=== PATIENT | male | born 1995 | race Caucasian/White ===

== ENCOUNTER 2021-06-07 01:07 | Emergency (ER) | payer BC ==
[~2021-06-07] VITALS: Ht 167.7 cm; Wt 82.6 kg
[2021-06-07] MEDS ORDERED: TAMSULOSIN 0.4 MG (FLOMAX) CAP PO STA (01:55)
[2021-06-07] MEDS ORDERED: NS IV 1000 ML 1,000 ML IV SCH (02:00)
[2021-06-07] MEDS ORDERED: KETOROLAC 15 MG/ML VIAL IVP ONE (02:00)
[2021-06-07 02:11] LABS: BASOPHILS # (AUTO) 0.1 10^3/uL (0.0-0.1); BASOPHILS % (AUTO) 1 % (0-10); EOSINOPHILS # (AUTO) 0.2 10^3/uL (0.0-0.3); EOSINOPHILS % (AUTO) 2 % (0-10); HEMATOCRIT 44 % (40-54); HEMOGLOBIN 14.8 g/dL (13.3-17.7); LYMPHOCYTES # (AUTO) 1.9 10^3/uL (1.0-4.0); LYMPHOCYTES % (AUTO) 20 % (12-44); MEAN CORPUSCULAR HEMOGLOBIN 31 pg (25-34); MEAN CORPUSCULAR HGB CONC 34 g/dL (32-36); MEAN CORPUSCULAR VOLUME 93 fL (80-99); MEAN PLATELET VOLUME 10.8 fL (9.0-12.2); MONOCYTES # (AUTO) 1.1 10^3/uL (0.0-1.0); MONOCYTES % (AUTO) 11 % (0-12); NEUTROPHILS # (AUTO) 6.3 10^3/uL (1.8-7.8); NEUTROPHILS % (AUTO) 66 % (42-75); PLATELET COUNT 205 10^3/uL (130-400); WHITE BLOOD COUNT 9.5 10^3/uL (4.3-11.0)
[2021-06-07 02:12] LABS: BILIRUBIN,URINE NEGATIVE (NEGATIVE); CLARITY,URINE CLEAR; COLOR,URINE YELLOW; GLUCOSE, URINE (UA) NEGATIVE (NEGATIVE); KETONES,URINE NEGATIVE (NEGATIVE); LEUKOCYTE ESTERASE ,URINE NEGATIVE (NEGATIVE); NITRITE,URINE NEGATIVE (NEGATIVE); PH,URINE 7.5 (5-9); PROTEIN,URINE NEGATIVE (NEGATIVE)
[2021-06-07 02:15] LABS: ALBUMIN 4.8 GM/DL (3.2-4.5); CHLORIDE 101 MMOL/L (98-107); POTASSIUM 4.2 MMOL/L (3.6-5.0); SODIUM 139 MMOL/L (135-145)
[2021-06-07 02:16] LABS: CALCIUM 9.8 MG/DL (8.5-10.1)
[2021-06-07 02:17] LABS: TOTAL PROTEIN 7.1 GM/DL (6.4-8.2)
[2021-06-07 02:18] LABS: CARBON DIOXIDE 22 MMOL/L (21-32); GLUCOSE 97 MG/DL (70-105)
[2021-06-07 02:19] LABS: BILIRUBIN,TOTAL 1.7 MG/DL (0.1-1.0)
[2021-06-07 02:21] LABS: ALKALINE PHOSPHATASE 53 U/L (40-136); CREATININE SERUM 0.81 MG/DL (0.60-1.30); GFR ESTIMATED 126
[2021-06-07 02:22] LABS: BUN/CREATININE RATIO 22
[2021-06-07 02:24] LABS: ALANINE AMINOTRANSFERASE 20 U/L (0-55)
[2021-06-07 02:25] LABS: LIPASE 42 U/L (8-78)
[2021-06-07 02:28] LABS: AMORPHOUS SEDIMENT,UR FEW AMOR URATES /LPF; AMPHETAMINE SCREEN, URINE POSITIVE (NEGATIVE); BACTERIA,URINE NEGATIVE /HPF; BARBITURATE SCREEN URINE NEGATIVE (NEGATIVE); BENZODIAZEPINES SCREEN URINE NEGATIVE (NEGATIVE); CANNABINOID SCREEN, URINE POSITIVE (NEGATIVE); COCAINE SCREEN URINE NEGATIVE (NEGATIVE); METHADONE STAT NEGATIVE (NEGATIVE); METHAMPHETAMINE SCREEN URINE S NEGATIVE (NEGATIVE); OPIATE SCREEN URINE NEGATIVE (NEGATIVE); OXYCODONE STAT NEGATIVE (NEGATIVE); PROPOXYPHENE STAT NEGATIVE (NEGATIVE); SQUAMOUS EPITHELIAL CELL,UR 0-2 /HPF; TRICYCLIC ANTIDEPRESSANTS SCRE NEGATIVE (NEGATIVE)
--- NOTE | 2021-06-07 05:23 | ED General ---
General Chief Complaint: General Problems/Pain Stated Complaint: DISORIENTED,KIDNEY PAIN History of Present Illness Date Seen by Provider: Jun 07, 2021 Time Seen by Provider: 02:50 Initial Comments 26-year-old male with PMH of ADHD who is here with complaints of left-sided flank pain which began yesterday, and feels like it radiates to his testicles. Patient is also stating that he has testicles that keep twisting and he has had to untwist it himself. Denies fever, SOB, chest pain, diarrhea, nausea. Pt states he has had a hard time passing urine and feels like it is stuck. (RFANCISCO CANTU MD) Allergies and Home Medications Allergies Coded Allergies: No Known Drug Allergies (Unverified , 06/07/21) Patient Home Medication List Home Medication List Reviewed: Yes (FRANCISCO CANTU MD) Review of Systems Review of Systems Constitutional: no symptoms reported EENTM: no symptoms reported Respiratory: no symptoms reported Cardiovascular: no symptoms reported Gastrointestinal: no symptoms reported Genitourinary: decreased output, pain Musculoskeletal: no symptoms reported Skin: no symptoms reported Psychiatric/Neurological: No Symptoms Reported Hematologic/Lymphatic: No Symptoms Reported (FRANCISCO CANTU MD) Physical Exam Vital Signs Vital Signs - First Documented 06/07/21 01:08 Temp 37.0 Pulse 90 Resp 18 B/P (MAP) 142/102 (115) Pulse Ox 100 O2 Delivery Room Air (JAYLEN MORALES) Vital Signs Capillary Refill : (FRANCISCO CANTU MD) Height, Weight, BMI Height: '" Weight: lbs. oz. kg; BMI Method: General Appearance: No Apparent Distress, Anxious HEENT: PERRL/EOMI Neck: Full Range of Motion Respiratory: Chest Non Tender, Lungs Clear, Normal Breath Sounds Cardiovascular: Regular Rate, Rhythm Gastrointestinal: Normal Bowel Sounds, No Pulsatile Mass Genital/Rectal: Tenderness (over the testicles, no apparent torsion) Back: CVA Tenderness (L) Neurologic/Psychiatric: Alert, Oriented x3 Lymphatic: No Adenopathy (FRANCISCO CANTU MD) Progress/Results/Core Measures Suspected Sepsis SIRS Temperature: Pulse: Respiratory Rate: Laboratory Tests 06/07/21 01:23: White Blood Count 9.5 Blood Pressure / Mean: Laboratory Tests 06/07/21 01:23: Creatinine 0.81, Platelet Count 205, Total Bilirubin 1.7H (FRANCISCO CANTU MD) Results/Orders Lab Results Laboratory Tests Test 06/07/21 01:23 Range/Units White Blood Count 9.5 4.3-11.0 10^3/uL Red Blood Count 4.72 4.30-5.52 10^6/uL Hemoglobin 14.8 13.3-17.7 g/dL Hematocrit 44 40-54 % Mean Corpuscular Volume 93 80-99 fL Mean Corpuscular Hemoglobin 31 25-34 pg Mean Corpuscular Hemoglobin Concent 34 32-36 g/dL Red Cell Distribution Width 13.8 10.0-14.5 % Platelet Count 205 130-400 10^3/uL Mean Platelet Volume 10.8 9.0-12.2 fL Immature Granulocyte % (Auto) 0 % Neutrophils (%) (Auto) 66 42-75 % Lymphocytes (%) (Auto) 20 12-44 % Monocytes (%) (Auto) 11 0-12 % Eosinophils (%) (Auto) 2 0-10 % Basophils (%) (Auto) 1 0-10 % Neutrophils # (Auto) 6.3 1.8-7.8 10^3/uL Lymphocytes # (Auto) 1.9 1.0-4.0 10^3/uL Monocytes # (Auto) 1.1 H 0.0-1.0 10^3/uL Eosinophils # (Auto) 0.2 0.0-0.3 10^3/uL Basophils # (Auto) 0.1 0.0-0.1 10^3/uL Immature Granulocyte # (Auto) 0.0 0.0-0.1 10^3/uL Urine Color YELLOW Urine Clarity CLEAR Urine pH 7.5 5-9 Urine Specific [place] 1.015 L 1.016-1.022 Urine Protein NEGATIVE NEGATIVE Urine Glucose (UA) NEGATIVE NEGATIVE Urine Ketones NEGATIVE NEGATIVE Urine Nitrite NEGATIVE NEGATIVE Urine Bilirubin NEGATIVE NEGATIVE Urine Urobilinogen 0.2 < = 1.0 MG/DL Urine Leukocyte Esterase NEGATIVE NEGATIVE Urine RBC (Auto) NEGATIVE NEGATIVE Urine RBC NONE /HPF Urine WBC NONE /HPF Urine Squamous Epithelial Cells 0-2 /HPF Urine Crystals PRESENT H /LPF Urine Amorphous Sediment FEW LON URATES H /LPF Urine Bacteria NEGATIVE /HPF Urine Casts NONE /LPF Urine Mucus NEGATIVE /LPF Urine Culture Indicated NO Sodium Level 139 135-145 MMOL/L Potassium Level 4.2 3.6-5.0 MMOL/L Chloride Level 101 98-107 MMOL/L Carbon Dioxide Level 22 21-32 MMOL/L Anion Gap 16 H 5-14 MMOL/L Blood Urea Nitrogen 18 7-18 MG/DL Creatinine 0.81 0.60-1.30 MG/DL Estimat Glomerular Filtration Rate 126 BUN/Creatinine Ratio 22 Glucose Level 97 70-105 MG/DL Calcium Level 9.8 8.5-10.1 MG/DL Corrected Calcium 8.5-10.1 MG/DL Total Bilirubin 1.7 H 0.1-1.0 MG/DL Aspartate Amino Transf (AST/SGOT) 16 5-34 U/L Alanine Aminotransferase (ALT/SGPT) 20 0-55 U/L Alkaline Phosphatase 53 40-136 U/L Total Protein 7.1 6.4-8.2 GM/DL Albumin 4.8 H 3.2-4.5 GM/DL Lipase 42 8-78 U/L Urine Opiates Screen NEGATIVE NEGATIVE Urine Oxycodone Screen NEGATIVE NEGATIVE Urine Methadone Screen NEGATIVE NEGATIVE Urine Propoxyphene Screen NEGATIVE NEGATIVE Urine Barbiturates Screen NEGATIVE NEGATIVE Ur Tricyclic Antidepressants Screen NEGATIVE NEGATIVE Urine Phencyclidine Screen NEGATIVE NEGATIVE Urine Amphetamines Screen POSITIVE H NEGATIVE Urine Methamphetamines Screen NEGATIVE NEGATIVE Urine Benzodiazepines Screen NEGATIVE NEGATIVE Urine Cocaine Screen NEGATIVE NEGATIVE Urine Cannabinoids Screen POSITIVE H NEGATIVE (JAYLEN MORALES) Medications Given in ED Current Medications Medications Dose Ordered Sig/Sandra Route Start Time Stop Time Status Last Admin Dose Admin Ketorolac Tromethamine 15 mg ONCE ONCE IVP 06/07/21 02:00 06/07/21 02:05 DC 06/07/21 02:33 15 MG (JAYLEN MORALES) Vital Signs/I&O 06/07/21 01:08 Temp 37.0 Pulse 90 Resp 18 B/P (MAP) 142/102 (115) Pulse Ox 100 O2 Delivery Room Air (JAYLEN MORALES) Vital Signs/I&O Capillary Refill : (FRANCISCO CANTU MD) Progress Note : Progress Note 1. LEFT FLANK PAIN: REFLUX - Pt in ER for long time since CT result only came in at 05:30 AM since radiology was backed up. Pt also needs u/s testis, and no u/s here at this time. - CT ABD & PELVIS: - Labs unremarkable - UA - F/u with Urology 2. TESTICULAR PAIN/ BILATERAL: - u/s testis needed - Signed out to Dr Morales for f/u of u/s results (FRANCISCO CANTU MD) Progress Note : Time: 07:46 Progress Note Assumed care of the patient at shift change. Ultrasound of scrotum pending. (JAYLEN MORALES) Diagnostic Imaging Diagonstic Imaging: Ultrasound Plain Films/CT/US/NM/MRI: other (Scrotum) Comments No testicular torsion noted on ultrasound Reviewed: Reviewed by Me Diagonstic Imaging: CT Plain Films/CT/US/NM/MRI: abdomen, pelvis Comments [facility], [place] NAME: ALVARO LYONS [facility] REC#: [id number] PT STATUS: REG ER : 1995 PHYSICIAN: FRANCISCO CANTU MD ADMIT DATE: 06/07/21/ER Signed Date of Exam:06/07/21 CT ABD/PELVIS WO(KIDNEY STONE) PROCEDURE: CT urinary tract, rule out kidney stone. TECHNIQUE: Multiple contiguous axial images were obtained through the abdomen and pelvis without the use of intravenous contrast. Auto Exposure Controls were utilized during the CT exam to meet ALARA standards for radiation dose reduction. INDICATION: Left flank pain. Testicular pain. COMPARISON: None FINDINGS: Included portions lung bases show 4 mm subpleural micronodule within the posterior lateral margins of the left lower lobe (image 12, series 2). CT ABDOMEN: Moderate air and stool seen scattered throughout the colon. Small bowel loops are nondistended. Normal appendix is identified. There is significant distention urinary bladder. Note is also made of mild bilateral hydronephrosis. Ureters are difficult to follow in a contiguous fashion, but no calculi are seen along expected course of ureters. No renal calculi are identified on either side. No suspicious renal masses are identified. The adrenal glands, spleen, pancreas, and liver have an unremarkable noncontrast CT appearance. There is no loculated fluid collection, free fluid or free air within the abdomen. No abnormal mesenteric or retroperitoneal adenopathy is seen. Osseous structures show no acute abnormalities. CT PELVIS: Again, there is significant distention urinary bladder. No calculi are seen within urinary bladder. There is no loculated fluid collection, free fluid or free air within the pelvis. No abnormal lymph nodes are seen. Osseous structures show no acute abnormalities. IMPRESSION: 1. Mild bilateral hydronephrosis. No calculi are seen within either kidney or ureter. Findings may relate to significant distention urinary bladder. Correlation with bladder outlet obstruction is advised. 2. Moderate colonic air and stool. Please correlate for constipation 3. 4 mm micronodule within the included portions the left lower lobe. Given patient's age, benignity is favored, but if patient is in a high-risk category, one-year follow-up is recommended to ensure stability. Dictated by: Dictated on workstation # [id number] Dict: 06/07/21627 Trans: 06/07/21801 [facility] [id number] Interpreted by: ROSA ELENA ROMERO MD Electronically signed by: ROSA ELENA ROMERO MD 06/07/21801 Reviewed: Reviewed by Me (JAYLEN MORALES) Departure Impression Primary Impression: Reflux of urine Additional Impression: Testicular pain Qualified Codes: N50.811 - Right testicular pain; N50.812 - Left testicular pain Disposition: 01 HOME, SELF-CARE Condition: Stable Departure-Patient Inst. Decision time for Depature: 08:34 (JAYLEN MORALES) Referrals: NO,LOCAL PHYSICIAN (PCP) Primary Care Physician ARIELLE GARCIA MD Patient Instructions: Vesicoureteral Reflux in Adults Add. Discharge Instructions: You do not appear to be having a testicular torsion at this time which is good however based on your symptoms I would highly recommend you follow-up with a urologist, Dr. Garcia by calling for an appointment today. If you have intractable pain in your testes that will not go away and you suspect you are having torsion I would highly encourage you to return to the nearest ER promptly so that we can repeat an ultrasound. Drink plenty of fluids. Flomax 1 capsule at nighttime to help with your urination. Continue this until the urologist tells you otherwise All discharge instructions reviewed with patient and/or family. Voiced understanding. Scripts Tamsulosin HCl (Flomax) 0.4 Mg Cap 0.4 MG PO HS, #14 CAP 0 Refills Prov: JAYLEN MORALES 06/07/21 Work/School Note: Work Release Form Date Seen in the Emergency Department: Jun 07, 2021 Return to Work: Jun 07, 2021 Restrictions: No Restrictions Copy Copies To 1: ARIELLE GARCIA MD, SNEHA L MD Jun 07, 2021 05:23 JAYLEN MORALES Jun 07, 2021 07:46
--- NOTE | 2021-06-07 07:50 | Diagnostic Imaging Report ---
PROCEDURE: CT urinary tract, rule out kidney stone. TECHNIQUE: Multiple contiguous axial images were obtained through the abdomen and pelvis without the use of intravenous contrast. Auto Exposure Controls were utilized during the CT exam to meet ALARA standards for radiation dose reduction. INDICATION: Left flank pain. Testicular pain. COMPARISON: None FINDINGS: Included portions lung bases show 4 mm subpleural micronodule within the posterior lateral margins of the left lower lobe (image 12, series 2). CT ABDOMEN: Moderate air and stool seen scattered throughout the colon. Small bowel loops are nondistended. Normal appendix is identified. There is significant distention urinary bladder. Note is also made of mild bilateral hydronephrosis. Ureters are difficult to follow in a contiguous fashion, but no calculi are seen along expected course of ureters. No renal calculi are identified on either side. No suspicious renal masses are identified. The adrenal glands, spleen, pancreas, and liver have an unremarkable noncontrast CT appearance. There is no loculated fluid collection, free fluid or free air within the abdomen. No abnormal mesenteric or retroperitoneal adenopathy is seen. Osseous structures show no acute abnormalities. CT PELVIS: Again, there is significant distention urinary bladder. No calculi are seen within urinary bladder. There is no loculated fluid collection, free fluid or free air within the pelvis. No abnormal lymph nodes are seen. Osseous structures show no acute abnormalities. IMPRESSION: 1. Mild bilateral hydronephrosis. No calculi are seen within either kidney or ureter. Findings may relate to significant distention urinary bladder. Correlation with bladder outlet obstruction is advised. 2. Moderate colonic air and stool. Please correlate for constipation 3. 4 mm micronodule within the included portions the left lower lobe. Given patient's age, benignity is favored, but if patient is in a high-risk category, one-year follow-up is recommended to ensure stability. Dictated by: Dictated on workstation # [id number]
[2021-06-07] MEDS ORDERED: TMSL.4C PO (08:45)
[2021-06-07 08:51] VITALS: BP 130/88
--- NOTE | 2021-06-07 09:43 | Diagnostic Imaging Report ---
EXAMINATION: US Scrotum w/ Duplex TECHNIQUE: Multiple realtime garza images were obtained of the scrotum in various projections bilaterally. Color Doppler images were also obtained. HISTORY: Scrotal pain. COMPARISON: None available. FINDINGS: The right testis has a homogeneous echogenic appearance without intratesticular mass or hyperemia, and measures 5.8 x 2.4 x 3.3 cm. The right epididymis is normal. No extratesticular mass. No hydrocele or varicocele. The left testis has a homogeneous echogenic appearance without intratesticular mass or hyperemia, and measures 5.2 x 2.5 x 3.5 cm. The left epididymis is nonvisualized. No extratesticular mass. No hydrocele or varicocele. Color and pulsed Doppler imaging demonstrates symmetric, flow with normal arterial waveforms obtained from each testis. IMPRESSION: 1. Unremarkable scrotal ultrasound. No findings to suggest torsion on this exam. Dictated by: Dictated on workstation # [id number]
== END 2021-06-07 08:51 | disposition home or self-care (01) ==
LOC: EDUNIT# 01:07 → ER 01:12
DX: N13.71 Vesicoureteral-reflux without reflux nephropathy (principal); N50.811 Right testicular pain; N50.812 Left testicular pain
CPT/HCPCS: 36415; 74176; 76870; 80053; 80306; 81000; 83690; 85025

== ENCOUNTER 2021-06-13 02:46 | Emergency (ER) | payer BC ==
[~2021-06-13] VITALS: Ht 168 cm; Wt 77.1 kg
[~2021-06-13 02:46] MED LIST: TMSL.4C PO
[2021-06-13 02:55] VITALS: BP 142/92
--- NOTE | 2021-06-13 03:07 | ED GU-Male ---
General Stated Complaint: TESTICULAR TORSION Source: patient History of Present Illness Date Seen by Provider: Jun 13, 2021 Time Seen by Provider: 02:59 Initial Comments PT ARRIVES VIA POV STATES HE "CAN'T PEE" LAST VOID WAS "BEFORE MIDNIGHT" STATES EARLIER IN THE DAY HE WAS ABLE TO PEE "A LITTLE BIT" NO PAIN OR BURNING NO URINATION STATES "MY MAIN PROBLEM IS TESTICULAR TORSION" STATES HE HAS HAD PAIN AND SWELLING TO RIGHT TESTICLE SINCE SOMETIME EARLIER THIS EVENING WHEN HE WAS TRYING TO GO TO BED HAS NOT TAKEN ANYTHING FOR PAIN PT WAS SEEN HERE 06/07/[address] AND ULTRASOUND WHICH DID NOT SHOW ANY EVIDENCE OF TORSION OR KIDNEY STONES, BUT DID HAVE A SIGNIFICANTLY DISTENDED BLADDER WITH BILATERAL HYDRONEPHROSIS WAS GIVEN RX FOR FLOMAX PT STATES IT "DIDN'T HELP" SO HE HAS NOT BEEN TAKING IT. STATES HE WAS REFERRED TO A UROLOGIST, BUT DOES NOT KNOW WHO HE WAS REFERRED TO AND DOES NOT KNOW WHEN HE HAS AN APPOINTMENT. PCP: KRYSTAL MELGAR Allergies and Home Medications Allergies Coded Allergies: No Known Drug Allergies (Unverified , 06/07/21) Patient Home Medication List Home Medication List Reviewed: Yes Phenazopyridine HCl (Pyridium) 200 Mg Tablet, 1 TAB PO TID Prescribed by: JAROCHO SHEEHAN on 06/13/21 0345 Tamsulosin HCl (Flomax) 0.4 Mg Cap, 0.4 MG PO HS Prescribed by: JAYLEN MCDONOUGH on 06/07/21 0845 Review of Systems Review of Systems Constitutional: no symptoms reported Gastrointestinal: no symptoms reported Genitourinary: see HPI Musculoskeletal: no symptoms reported Past Ozhjpwq-Xndbia-Bbtsrv Hx Patient Social History Tobacco Use?: Yes Substance use?: Yes Substance type: Amphetamines, Marijuana Substance frequency: Daily Past Medical History Surgeries: No Respiratory: No Cardiac: No Neurological: No Genitourinary: No Gastrointestinal: No Musculoskeletal: No Endocrine: No HEENT: No Cancer: No Psychosocial: Yes ADD/ADHD Integumentary: No Blood Disorders: No Physical Exam Vital Signs Vital Signs - First Documented 06/13/21 02:55 Temp 36.8 Pulse 87 Resp 20 B/P (MAP) 142/92 (109) Pulse Ox 99 Capillary Refill : Height, Weight, BMI Height: '" Weight: lbs. oz. kg; 29.00 BMI Method: General Appearance: WD/WN, no apparent distress, other (WALKS UPRIGHT AND MOVES WITHOUT DIFFICULTY. VERY FLAT AFFECT WITH SLOW MENTATION. DOES NOT APPEAR TO BE IN ANY DISCOMFORT OR DISTRESS. ) Cardiovascular: regular rate, rhythm Respiratory: normal breath sounds Gastrointestinal: normal bowel sounds, non tender, soft Male: normal genitalia, no hernia; No erythema, No inguinal tenderness, No testicular tenderness; other (TESTICLES DESCENDED BILATERALLY AND FREELY MOBILE. SCROTUM IS NORMAL AND SOFT, NO DISCOLORATION. NO PAIN ON PALPATION. NO LESIONS. ULCERS OR PENILE DISCHARGE. MILD BILATERAL INGUINAL ADENOPATHY) Genital/Rectal: normal genital exam Back: no CVA tenderness Extremities: normal inspection Neurologic/Psychiatric: no motor/sensory deficits, alert, oriented x 3 Skin: normal color, warm/dry Progress/Results/Core Measures Suspected Sepsis SIRS Temperature: Pulse: Respiratory Rate: Laboratory Tests 06/13/21 03:00: White Blood Count 6.9 Blood Pressure / Mean: Laboratory Tests 06/13/21 03:00: Creatinine 0.75, Platelet Count 200, Total Bilirubin 1.3H Results/Orders Lab Results Laboratory Tests Test 06/13/21 03:00 06/13/21 03:10 Range/Units White Blood Count 6.9 4.3-11.0 10^3/uL Red Blood Count 4.66 4.30-5.52 10^6/uL Hemoglobin 14.7 13.3-17.7 g/dL Hematocrit 43 40-54 % Mean Corpuscular Volume 92 80-99 fL Mean Corpuscular Hemoglobin 32 25-34 pg Mean Corpuscular Hemoglobin Concent 34 32-36 g/dL Red Cell Distribution Width 13.9 10.0-14.5 % Platelet Count 200 130-400 10^3/uL Mean Platelet Volume 10.3 9.0-12.2 fL Immature Granulocyte % (Auto) 0 % Neutrophils (%) (Auto) 62 42-75 % Lymphocytes (%) (Auto) 25 12-44 % Monocytes (%) (Auto) 10 0-12 % Eosinophils (%) (Auto) 2 0-10 % Basophils (%) (Auto) 1 0-10 % Neutrophils # (Auto) 4.2 1.8-7.8 10^3/uL Lymphocytes # (Auto) 1.7 1.0-4.0 10^3/uL Monocytes # (Auto) 0.7 0.0-1.0 10^3/uL Eosinophils # (Auto) 0.1 0.0-0.3 10^3/uL Basophils # (Auto) 0.0 0.0-0.1 10^3/uL Immature Granulocyte # (Auto) 0.0 0.0-0.1 10^3/uL Sodium Level 139 135-145 MMOL/L Potassium Level 3.7 3.6-5.0 MMOL/L Chloride Level 103 98-107 MMOL/L Carbon Dioxide Level 22 21-32 MMOL/L Anion Gap 14 5-14 MMOL/L Blood Urea Nitrogen 19 H 7-18 MG/DL Creatinine 0.75 0.60-1.30 MG/DL Estimat Glomerular Filtration Rate 129 BUN/Creatinine Ratio 25 Glucose Level 102 70-105 MG/DL Calcium Level 9.4 8.5-10.1 MG/DL Corrected Calcium 8.5-10.1 MG/DL Total Bilirubin 1.3 H 0.1-1.0 MG/DL Aspartate Amino Transf (AST/SGOT) 19 5-34 U/L Alanine Aminotransferase (ALT/SGPT) 23 0-55 U/L Alkaline Phosphatase 41 40-136 U/L Total Protein 6.9 6.4-8.2 GM/DL Albumin 4.6 H 3.2-4.5 GM/DL Urine Color YELLOW Urine Clarity CLEAR Urine pH 6.5 5-9 Urine Specific [place] 1.010 L 1.016-1.022 Urine Protein NEGATIVE NEGATIVE Urine Glucose (UA) NEGATIVE NEGATIVE Urine Ketones NEGATIVE NEGATIVE Urine Nitrite NEGATIVE NEGATIVE Urine Bilirubin NEGATIVE NEGATIVE Urine Urobilinogen 0.2 < = 1.0 MG/DL Urine Leukocyte Esterase NEGATIVE NEGATIVE Urine RBC (Auto) NEGATIVE NEGATIVE Urine RBC NONE /HPF Urine WBC NONE /HPF Urine Squamous Epithelial Cells NONE /HPF Urine Crystals NONE /LPF Urine Bacteria NEGATIVE /HPF Urine Casts NONE /LPF Urine Mucus NEGATIVE /LPF Urine Culture Indicated NO Urine Opiates Screen NEGATIVE NEGATIVE Urine Oxycodone Screen NEGATIVE NEGATIVE Urine Methadone Screen NEGATIVE NEGATIVE Urine Propoxyphene Screen NEGATIVE NEGATIVE Urine Barbiturates Screen NEGATIVE NEGATIVE Ur Tricyclic Antidepressants Screen NEGATIVE NEGATIVE Urine Phencyclidine Screen NEGATIVE NEGATIVE Urine Amphetamines Screen POSITIVE H NEGATIVE Urine Methamphetamines Screen NEGATIVE NEGATIVE Urine Benzodiazepines Screen NEGATIVE NEGATIVE Urine Cocaine Screen NEGATIVE NEGATIVE Urine Cannabinoids Screen POSITIVE H NEGATIVE My Orders Orders - SISSY,JAROCHO K DO Ed Iv/Invasive Line Start (06/13/21 03:01) Cbc With Automated Diff (06/13/21 03:01) Comprehensive Metabolic Panel (06/13/21 03:01) Drug Screen Stat (Urine) (06/13/21 03:01) Ua Culture If Indicated (06/13/21 03:01) Ed Iv/Invasive Line Start (06/13/21 03:01) Lactated Ringers (Lr 1000 Ml Iv Solution (06/13/21 03:15) Bladder Scan (06/13/21 03:08) Catheter(Urinary) Insert & Ass 03,15 (06/13/21 03:24) Tamsulosin Capsule (Flomax Capsule) (06/13/21 03:30) Phenazopyridine Tablet (Pyridium Tablet) (06/13/21 03:45) Vital Signs/I&O 06/13/21 02:55 Temp 36.8 Pulse 87 Resp 20 B/P (MAP) 142/92 (109) Pulse Ox 99 Capillary Refill : Progress Note : Progress Note PT VOIDED APPROXIMATELY 100 ML URINE BLADDER SCAN SHOWS ALMOST 300 ML POST VOID RESIDUAL. GAO CATHETER PLACED WITH IMMEDIATE RETURN OF 300 ML CLEAR URINE. EXAM DOES NOT REVEAL ANY EVIDENCE OF TORSION AT THIS TIME--NO TENDERNESS AT ALL, NO SWELLING, NO RETRACTED OR IMMOBILE TESTICLE, NO ERYTHEMA OR SIGNS OF INFECTION TO SCROTUM, TESTICLE OR EPIDIDYMIS Departure Impression Primary Impression: Urinary retention Additional Impressions: Illicit drug use Testicular pain Disposition: 01 HOME, SELF-CARE Condition: Improved Departure-Patient Inst. Decision time for Depature: 03:44 Referrals: NO,LOCAL PHYSICIAN (PCP) Primary Care Physician ARIELLE GARCIA MD Patient Instructions: How to Care for Your Gao Catheter, Male, Marijuana Use and Addiction (DC), Urinary Retention (DC) Add. Discharge Instructions: LEAVE CATHETER IN PLACE, DRAIN INSTRUCTED TAKE YOUR FLOMAX DAILY NO MARIJUANA OR AMPHETAMINES FOLLOW UP WITH DR. GARCIA THIS WEEK FOR FURTHER CARE Scripts Phenazopyridine HCl (Pyridium) 200 Mg Tablet 1 TAB PO TID, #15 TAB Prov: JAROCHO SHEEHAN DO 06/13/21 JAROCHO SHEEHAN DO Jun 13, 2021 03:07
[2021-06-13 03:11] LABS: BASOPHILS % (AUTO) 1 % (0-10); EOSINOPHILS # (AUTO) 0.1 10^3/uL (0.0-0.3); EOSINOPHILS % (AUTO) 2 % (0-10); HEMATOCRIT 43 % (40-54); HEMOGLOBIN 14.7 g/dL (13.3-17.7); LYMPHOCYTES # (AUTO) 1.7 10^3/uL (1.0-4.0); LYMPHOCYTES % (AUTO) 25 % (12-44); MEAN CORPUSCULAR HEMOGLOBIN 32 pg (25-34); MEAN CORPUSCULAR HGB CONC 34 g/dL (32-36); MEAN CORPUSCULAR VOLUME 92 fL (80-99); MEAN PLATELET VOLUME 10.3 fL (9.0-12.2); MONOCYTES # (AUTO) 0.7 10^3/uL (0.0-1.0); MONOCYTES % (AUTO) 10 % (0-12); NEUTROPHILS # (AUTO) 4.2 10^3/uL (1.8-7.8); NEUTROPHILS % (AUTO) 62 % (42-75); PLATELET COUNT 200 10^3/uL (130-400); WHITE BLOOD COUNT 6.9 10^3/uL (4.3-11.0)
[2021-06-13] MEDS ORDERED: LACTATED RINGERS 1,000 ML IV ONE (03:15)
[2021-06-13 03:21] LABS: BILIRUBIN,URINE NEGATIVE (NEGATIVE); CLARITY,URINE CLEAR; COLOR,URINE YELLOW; GLUCOSE, URINE (UA) NEGATIVE (NEGATIVE); KETONES,URINE NEGATIVE (NEGATIVE); LEUKOCYTE ESTERASE ,URINE NEGATIVE (NEGATIVE); NITRITE,URINE NEGATIVE (NEGATIVE); PH,URINE 6.5 (5-9); PROTEIN,URINE NEGATIVE (NEGATIVE)
[2021-06-13 03:21] LABS: ALBUMIN 4.6 GM/DL (3.2-4.5); CHLORIDE 103 MMOL/L (98-107); POTASSIUM 3.7 MMOL/L (3.6-5.0); SODIUM 139 MMOL/L (135-145)
[2021-06-13 03:22] LABS: CALCIUM 9.4 MG/DL (8.5-10.1)
[2021-06-13 03:23] LABS: GLUCOSE 102 MG/DL (70-105); TOTAL PROTEIN 6.9 GM/DL (6.4-8.2)
[2021-06-13 03:24] LABS: CARBON DIOXIDE 22 MMOL/L (21-32)
[2021-06-13 03:25] LABS: BILIRUBIN,TOTAL 1.3 MG/DL (0.1-1.0)
[2021-06-13 03:27] LABS: ALKALINE PHOSPHATASE 41 U/L (40-136); CREATININE SERUM 0.75 MG/DL (0.60-1.30); GFR ESTIMATED 129
[2021-06-13 03:28] LABS: BUN/CREATININE RATIO 25
[2021-06-13 03:30] LABS: ALANINE AMINOTRANSFERASE 23 U/L (0-55)
[2021-06-13] MEDS ORDERED: TAMSULOSIN 0.4 MG (FLOMAX) CAP PO SCH (03:30)
[2021-06-13 03:35] LABS: AMPHETAMINE SCREEN, URINE POSITIVE (NEGATIVE); BACTERIA,URINE NEGATIVE /HPF; BARBITURATE SCREEN URINE NEGATIVE (NEGATIVE); BENZODIAZEPINES SCREEN URINE NEGATIVE (NEGATIVE); CANNABINOID SCREEN, URINE POSITIVE (NEGATIVE); COCAINE SCREEN URINE NEGATIVE (NEGATIVE); METHADONE STAT NEGATIVE (NEGATIVE); METHAMPHETAMINE SCREEN URINE S NEGATIVE (NEGATIVE); OPIATE SCREEN URINE NEGATIVE (NEGATIVE); OXYCODONE STAT NEGATIVE (NEGATIVE); PROPOXYPHENE STAT NEGATIVE (NEGATIVE); TRICYCLIC ANTIDEPRESSANTS SCRE NEGATIVE (NEGATIVE)
[2021-06-13] MEDS ORDERED: PHEN-640 PO (03:45)
[2021-06-13] MEDS ORDERED: PHENAZOPYRIDINE 100 MG (PYRIDIUM) TABLET PO ONE (03:45)
== END 2021-06-13 04:05 | disposition home or self-care (01) ==
LOC: EDUNIT# 02:46 → ER 02:50
DX: R33.9 Retention of urine, unspecified (principal); F19.90 Other psychoactive substance use, unspecified, uncomplicated; N50.811 Right testicular pain
CPT/HCPCS: 36415; 80053; 80306; 81000; 85025

== ENCOUNTER 2021-06-30 09:34 | Emergency (ER) | payer BC ==
[~2021-06-30] VITALS: Ht 167.7 cm; Wt 77.1 kg
[~2021-06-30 09:34] MED LIST changes: +PHEN-640 PO
[2021-06-30] MEDS ORDERED: LIDOCAINE 2% VISCOUS 15 ML UDC PO ONE (09:45)
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
[2021-06-30 10:45] LABS: BILIRUBIN,URINE NEGATIVE (NEGATIVE); CLARITY,URINE CLEAR; COLOR,URINE YELLOW; GLUCOSE, URINE (UA) NEGATIVE (NEGATIVE); KETONES,URINE NEGATIVE (NEGATIVE); LEUKOCYTE ESTERASE ,URINE NEGATIVE (NEGATIVE); NITRITE,URINE NEGATIVE (NEGATIVE); PH,URINE 8.5 (5-9); PROTEIN,URINE NEGATIVE (NEGATIVE)
[2021-06-30 10:57] LABS: AMPHETAMINE SCREEN, URINE POSITIVE (NEGATIVE); BARBITURATE SCREEN URINE NEGATIVE (NEGATIVE); BENZODIAZEPINES SCREEN URINE NEGATIVE (NEGATIVE); CANNABINOID SCREEN, URINE POSITIVE (NEGATIVE); COCAINE SCREEN URINE NEGATIVE (NEGATIVE); METHADONE STAT NEGATIVE (NEGATIVE); OPIATE SCREEN URINE NEGATIVE (NEGATIVE); OXYCODONE STAT NEGATIVE (NEGATIVE); PROPOXYPHENE STAT NEGATIVE (NEGATIVE); TRICYCLIC ANTIDEPRESSANTS SCRE NEGATIVE (NEGATIVE)
[2021-06-30 10:59] LABS: BACTERIA,URINE NEGATIVE /HPF; RBC,URINE RARE /HPF; SQUAMOUS EPITHELIAL CELL,UR RARE /HPF; WBC,URINE RARE /HPF
[2021-06-30 11:17] LABS: BASOPHILS % (AUTO) 0 % (0-10); EOSINOPHILS # (AUTO) 0.1 10^3/uL (0.0-0.3); EOSINOPHILS % (AUTO) 1 % (0-10); HEMATOCRIT 43 % (40-54); HEMOGLOBIN 14.3 g/dL (13.3-17.7); LYMPHOCYTES # (AUTO) 1.1 10^3/uL (1.0-4.0); LYMPHOCYTES % (AUTO) 14 % (12-44); MEAN CORPUSCULAR HEMOGLOBIN 32 pg (25-34); MEAN CORPUSCULAR HGB CONC 34 g/dL (32-36); MEAN CORPUSCULAR VOLUME 96 fL (80-99); MEAN PLATELET VOLUME 10.2 fL (9.0-12.2); MONOCYTES # (AUTO) 0.5 10^3/uL (0.0-1.0); MONOCYTES % (AUTO) 6 % (0-12); NEUTROPHILS # (AUTO) 5.9 10^3/uL (1.8-7.8); NEUTROPHILS % (AUTO) 78 % (42-75); PLATELET COUNT 208 10^3/uL (130-400); WHITE BLOOD COUNT 7.5 10^3/uL (4.3-11.0)
[2021-06-30 11:31] LABS: CHLORIDE 104 MMOL/L (98-107); POTASSIUM 4.9 MMOL/L (3.6-5.0); SODIUM 141 MMOL/L (135-145)
[2021-06-30 11:32] LABS: ALBUMIN 4.6 GM/DL (3.2-4.5)
[2021-06-30 11:33] LABS: CALCIUM 9.8 MG/DL (8.5-10.1)
[2021-06-30 11:34] LABS: GLUCOSE 99 MG/DL (70-105)
[2021-06-30 11:35] LABS: CARBON DIOXIDE 27 MMOL/L (21-32); TOTAL PROTEIN 7.2 GM/DL (6.4-8.2)
[2021-06-30 11:36] LABS: BILIRUBIN,TOTAL 1.6 MG/DL (0.1-1.0)
[2021-06-30 11:38] LABS: ALKALINE PHOSPHATASE 50 U/L (40-136); CREATININE SERUM 0.85 MG/DL (0.60-1.30); GFR ESTIMATED 124
[2021-06-30 11:39] LABS: BUN/CREATININE RATIO 13
[2021-06-30 11:40] LABS: ACETAMINOPHEN < 10 UG/ML (10-30)
[2021-06-30 11:41] LABS: ALANINE AMINOTRANSFERASE 21 U/L (0-55); SALICYLATE < 5.0 MG/DL (5.0-20.0)
[2021-06-30 12:15] VITALS: BP 135/86
== END 2021-06-30 12:15 | disposition home or self-care (01) ==
LOC: ER 09:34 → EDUNIT# 09:34 → ER 12:15
DX: R45.4 Irritability and anger (principal); F22 Delusional disorders; F42.9 Obsessive-compulsive disorder, unspecified; F12.10 Cannabis abuse, uncomplicated; Z65.8 Other specified problems related to psychosocial circumstances; Z87.440 Personal history of urinary (tract) infections; Z79.899 Other long term (current) drug therapy
CPT/HCPCS: 80053; 80306; 81000; 85025; 99283; G0480 ×3; 36415; 80320; 80329

== ENCOUNTER 2021-08-25 19:22 | Emergency (ER) | payer BC ==
--- NOTE | 2021-08-25 19:49 | ED GU-Male ---
General Chief Complaint: - Reproductive Stated Complaint: URINARY PROBLEMS Source: patient Exam Limitations: no limitations History of Present Illness Date Seen by Provider: Aug 25, 2021 Time Seen by Provider: 19:25 Initial Comments 26yoM with PMH of ADHD on Adderall coming in due to difficulty urinating with urgency. Has been going on for over 3 months and worsening over that time. Nocturia 3-4x per night. Stopped his Adderall a couple days ago with no change yet in symptoms. Denies fever, n/v/d, abd pain, chest pain, SOA, or any other concerns. Has had these symptoms in the remote past and had a straight cath at one point. He is often constipated and he believes this is related. Has been referred to Dr. Garcia but has not made it yet. Allergies and Home Medications Allergies Coded Allergies: No Known Drug Allergies (Unverified , 06/07/21) Patient Home Medication List Home Medication List Reviewed: Yes Phenazopyridine HCl (Pyridium) 200 Mg Tablet, 1 TAB PO TID Prescribed by: JAROCHO SHEEHAN on 06/13/21 0345 Tamsulosin HCl (Flomax) 0.4 Mg Cap, 0.4 MG PO HS Prescribed by: JAYLEN MCDONOUGH on 06/07/21 0891 Review of Systems Review of Systems Constitutional: No fever EENTM: No blurred vision Respiratory: no symptoms reported Cardiovascular: no symptoms reported Gastrointestinal: no symptoms reported Genitourinary: frequency, urgency Musculoskeletal: no symptoms reported Skin: no symptoms reported Psychiatric/Neurological: No Symptoms Reported Endocrine: No Symptoms Reported Hematologic/Lymphatic: No Symptoms Reported All Other Systemes Reviewed Negative Unless Noted: Yes Past Oigmxns-Elhold-Tgyvlp Hx Patient Social History Tobacco Use?: No Substance use?: Yes Substance type: Marijuana Substance frequency: Couple times a week Alcohol Use?: No Pt feels they are or have been: No Immunizations Up To Date Influenza Vaccine Up-to-Date: No; Not Current Past Medical History Surgery/Hospitalization HX: ADHD Surgeries: No Respiratory: No Cardiac: No Neurological: No Genitourinary: No Gastrointestinal: No Musculoskeletal: No Endocrine: No HEENT: No Cancer: No Psychosocial: Yes ADD/ADHD Integumentary: No Blood Disorders: No Physical Exam Vital Signs Vital Signs - First Documented 08/25/21 19:36 Temp 36.7 Pulse 81 Resp 16 B/P (MAP) 137/83 (101) Capillary Refill : Height, Weight, BMI Height: '" Weight: lbs. oz. kg; 27.00 BMI Method: General Appearance: WD/WN, no apparent distress HEENT: PERRL/EOMI, normal ENT inspection, pharynx normal Neck: non-tender, full range of motion, supple, normal inspection Cardiovascular: regular rate, rhythm, no edema, no murmur Respiratory: chest non-tender, lungs clear, normal breath sounds, no respiratory distress, no accessory muscle use Gastrointestinal: normal bowel sounds, non tender, soft; No distended, No guarding, No rebound Back: normal inspection, no CVA tenderness, no vertebral tenderness Extremities: normal range of motion, non-tender, normal inspection, no pedal edema, no calf tenderness, normal capillary refill Neurologic/Psychiatric: no motor/sensory deficits, alert, normal mood/affect Skin: normal color, warm/dry Lymphatic: no adenopathy Progress/Results/Core Measures Suspected Sepsis SIRS Temperature: Pulse: Respiratory Rate: Blood Pressure / Mean: Results/Orders My Orders Orders - STEWART REYNOSO MD Ua Culture If Indicated (08/25/21 19:49) Vital Signs/I&O 08/25/21 19:36 Temp 36.7 Pulse 81 Resp 16 B/P (MAP) 137/83 (101) Capillary Refill : Progress Note : Progress Note 26-year-old male with above history coming in due to urinary retention. ABCs were intact and vitals were stable on presentation. Physical exam reassuring including a soft and nontender abdomen. The patient attempted to urinate and was unable to. I then did a quadrant of care ultrasound and he has just over 200 cc urine in his bladder. We will once again placed a Tony which was done here in May. He was supposed to follow-up with Dr. Garcia, but instead he took a Tony out himself. He did say he deflated the balloon first. I discussed with the patient if he keeps presenting to the emergency department for urinary retention, our options are limited, and often we will just be able to place a Tony catheter in refer him to urology. I discussed with him this is the third or fourth visit to the ER, and it is important that he stops canceling the appointment with the urologist. Patient is agreeable to this. He was then discharged home in stable condition with strict return precautions. I suspect this is either psychogenic or potentially side effect of the Adderall. He is not taking it currently and he may just need to wash out of his system. Departure Impression Primary Impression: Urinary retention Disposition: HOME, SELF-CARE Condition: Stable Departure-Patient Inst. Decision time for Depature: 20:15 Referrals: NO,LOCAL PHYSICIAN (PCP) Primary Care Physician ARIELLE GARCIA MD Patient Instructions: Urinary Obstruction (DC) Add. Discharge Instructions: Please keep the Tony in place and follow-up with Dr. Garcia. It is very important you follow-up with the urologist as we are unsure what is going on in the emergency department. Your best chance to figure out what is going on is following up with him. Work/School Note: Work Release Form Date Seen in the Emergency Department: Aug 25, 2021 Return to Work: Aug 26, 2021 Restrictions: No Restrictions STEWART REYNOSO MD Aug 25, 2021 19:49
[2021-08-25 20:40] VITALS: BP 127/74
[2021-08-25 20:43] LABS: BILIRUBIN,URINE NEGATIVE (NEGATIVE); CLARITY,URINE CLEAR; COLOR,URINE YELLOW; GLUCOSE, URINE (UA) NEGATIVE (NEGATIVE); KETONES,URINE NEGATIVE (NEGATIVE); LEUKOCYTE ESTERASE ,URINE NEGATIVE (NEGATIVE); NITRITE,URINE NEGATIVE (NEGATIVE); PH,URINE 5.5 (5-9); PROTEIN,URINE NEGATIVE (NEGATIVE)
[2021-08-25 20:49] LABS: BACTERIA,URINE NEGATIVE /HPF; RBC,URINE 0-2 /HPF; SQUAMOUS EPITHELIAL CELL,UR RARE /HPF; WBC,URINE 0-2 /HPF
== END 2021-08-25 20:41 | disposition home or self-care (01) ==
LOC: EDUNIT# 19:22 → ER 19:24
DX: R33.9 Retention of urine, unspecified (principal); Z96.0 Presence of urogenital implants
CPT/HCPCS: 51702; 81000

== ENCOUNTER 2022-01-01 21:23 | Emergency (ER) | payer BC ==
[2022-01-01 22:11] LABS: BASOPHILS # (AUTO) 0.1 10^3/uL (0.0-0.1); BASOPHILS % (AUTO) 1 % (0-10); EOSINOPHILS # (AUTO) 0.1 10^3/uL (0.0-0.3); EOSINOPHILS % (AUTO) 2 % (0-10); HEMATOCRIT 40 % (40-54); LYMPHOCYTES % (AUTO) 30 % (12-44); MEAN CORPUSCULAR HEMOGLOBIN 32 pg (25-34); MEAN CORPUSCULAR HGB CONC 35 g/dL (32-36); MEAN CORPUSCULAR VOLUME 91 fL (80-99); MEAN PLATELET VOLUME 10.5 fL (9.0-12.2); MONOCYTES # (AUTO) 0.7 10^3/uL (0.0-1.0); MONOCYTES % (AUTO) 10 % (0-12); NEUTROPHILS # (AUTO) 3.8 10^3/uL (1.8-7.8); NEUTROPHILS % (AUTO) 58 % (42-75); PLATELET COUNT 164 10^3/uL (130-400); WHITE BLOOD COUNT 6.6 10^3/uL (4.3-11.0)
[2022-01-01 22:40] LABS: ALANINE AMINOTRANSFERASE 15 U/L (0-55); ALBUMIN 4.7 GM/DL (3.2-4.5); ALKALINE PHOSPHATASE 54 U/L (40-136); BUN/CREATININE RATIO 38; CALCIUM 9.6 MG/DL (8.5-10.1); CARBON DIOXIDE 24 MMOL/L (21-32); CHLORIDE 104 MMOL/L (98-107); CREATININE SERUM 0.76 MG/DL (0.60-1.30); GFR ESTIMATED 129; GLUCOSE 89 MG/DL (70-105); POTASSIUM 4.1 MMOL/L (3.6-5.0); SALICYLATE < 5.0 MG/DL (5.0-20.0); SODIUM 140 MMOL/L (135-145); TOTAL PROTEIN 7.1 GM/DL (6.4-8.2)
[2022-01-01 22:54] LABS: BILIRUBIN,URINE NEGATIVE (NEGATIVE); CLARITY,URINE CLEAR; COLOR,URINE YELLOW; GLUCOSE, URINE (UA) NEGATIVE (NEGATIVE); KETONES,URINE NEGATIVE (NEGATIVE); LEUKOCYTE ESTERASE ,URINE NEGATIVE (NEGATIVE); NITRITE,URINE NEGATIVE (NEGATIVE); PH,URINE 5.5 (5-9); PROTEIN,URINE TRACE (NEGATIVE)
[2022-01-01 22:55] LABS: ACETAMINOPHEN < 10 UG/ML (10-30)
[2022-01-01 23:04] LABS: BACTERIA,URINE NEGATIVE /HPF; URINE OTHER FEW SPERM /HPF
[2022-01-01 23:05] LABS: AMPHETAMINE SCREEN, URINE POSITIVE (NEGATIVE); BARBITURATE SCREEN URINE NEGATIVE (NEGATIVE); BENZODIAZEPINES SCREEN URINE NEGATIVE (NEGATIVE); CANNABINOID SCREEN, URINE POSITIVE (NEGATIVE); COCAINE SCREEN URINE NEGATIVE (NEGATIVE); METHADONE STAT NEGATIVE (NEGATIVE); OPIATE SCREEN URINE NEGATIVE (NEGATIVE); OXYCODONE STAT NEGATIVE (NEGATIVE); PROPOXYPHENE STAT NEGATIVE (NEGATIVE); TRICYCLIC ANTIDEPRESSANTS SCRE NEGATIVE (NEGATIVE)
[2022-01-01 23:23] VITALS: BP 114/68
--- NOTE | 2022-01-01 23:25 | ED General ---
General Chief Complaint: General Problems/Pain Stated Complaint: UNABLE TO SLEEP Nursing Triage Note: PT ARRIVAL TO ER FROM HOME VIA PRIVATE VEHICLE WITH COMPLAINT OF INABILITY TO SLEEP. PATIENT STATES THAT HE HASN'T SLEPT MORE THEN AN HOUR IN THE LAST 100 DAYS. PATIENT STATES THAT HIS NEIGHBORS WAKE HIM UP SOON HE GOES TO SLEEP. PATIENT STATES THAT THE FELLER MACHINE OPERATOR HAVE A CASE AGAINST HIS NEIGHBORS. PATIENT HAS NO OTHER COMPLAINTS. PT STATES THAT [facility] SENT HIM HERE. PT DENIES TAKING ANYTHING SUCH SLEEP AIDS OR SEEING ANYONE FOR THIS IN THE PAST. Source of Information: Patient (DIFFICULT HISTORIAN, DIFFICULT TO KEEP ON SUBJECT) History of Present Illness Date Seen by Provider: Jan 01, 2022 Time Seen by Provider: 21:40 Initial Comments PT ARRIVES VIA POV--STATES HIS MOM BROUGHT HIM AND DROPPED HIM OFF ( SHE IS NOT HERE IN ER ) PT STATES "THE POLICE SENT ME HERE BECAUSE OF MY NEIGHBORS" "THEY'RE TRYING TO KILL ME THROUGH SLEEP DEPRIVATION" "I HAVEN'T SLEPT FOR 100 DAYS" "I DON'T KNOW EXACTLY WHO'S DOING IT" "JUST PEOPLE--I'M ASSUMING IT'S A GROUP OF PEOPLE ABOVE" "THE POLICE SAID THEY COULDN'T DO ANYTHING" "I'VE LOST ALOT OF WEIGHT THROUGH THIS" --CLAIMS HE HAS LOST 100 LBS IN THE LAST 9 MONTHS--"I JUST KEEP GOING TO THE BATHROOM". STATES HE HAS BM'S 6 TIMES A DAY "DIARRHEA OR CONSTIPATION" NO NAUSEA/VOMITING OR ABDOMINAL PAIN "MY DOCTOR HASN'T FOUND OUT WHAT'S CAUSING THE ANEMIA-THAT'S THE ONLY THING THEY FOUND WRONG" LATER, PT STATES THAT HE DID NOT GO TO THE POLICE TODAY PT STATES "THERE'S A GOOD CHANCE I'LL WAKE UP SCREAMING BECAUSE THEY'VE BEEN WAKING ME UP" "THEY WAIT UNTIL I'M ASLEEP AND IF I'M NOT ALL THE WAY ASLEEP, THEN THEY GET LOUDER SO THEY CAN WAKE ME UP" "SOMEBODY'S EAVESDROPPING--THEY CAN HEAR EVERYTHING I'M SAYING -THEY KNOW EVERYTHING ABOUT ME" "WE'RE AFRAID TO LEAVE BECAUSE I'M AFRAID THEY'LL BREAK IN--THAT'S WHAT THEY'RE WAITING FOR--THAT'S WHAT THEY'RE SETTING US UP TO DO--FOR BOTH OF US TO LEAVE AT THE SAME TIME" "I DON'T THINK YOUR REALIZE WHAT THEY'RE DOING TO US--EVERY 10 MINUTES THEY'RE MAKING SOME NOISE--I CAN HEAR IT THROUGH THE VENTS AND IF THEY DON'T WAKE US UP COMPLETELY, THEY JUST KEEP GETTING LOUDER UNTIL WE DO WAKE UP" WHEN ASKED WHO "WE" WAS--PT STATES BOTH HE AND HIS MOTHER, WHO HE LIVES WITH. PT HAS AN EXTENSIVE PSYCH HISTORY WITH MULTIPLE PSYCH ADMITS. STATES HE HAS BEEN DX WITH SCHIZOAFFECTIVE DISORDER. HE STATES THE ONLY MEDICATION THAT HE TAKES IS MEDICATION FOR ADHD. HE DENIES ANY THOUGHTS OF HARMING HIMSELF OR ANYONE ELSE. HE STATES HE SAW DR. SEPULVEDA, HIS PCP IN [place] A COUPLE OF DAYS AGO. ON MED RECONCILIATION, PT IS PRESCRIBED AMPHETAMINE SALTS BY DR. SEPULVEDA. PT WANTS SOMETHING SO HE CAN SLEEP PT HAS NO OTHER PHYSICAL COMPLAINTS PCP: DR. SEPULVEDA Allergies and Home Medications Allergies Coded Allergies: No Known Drug Allergies (Unverified , 06/07/21) Patient Home Medication List Home Medication List Reviewed: Yes Phenazopyridine HCl (Pyridium) 200 Mg Tablet, 1 TAB PO TID Prescribed by: JAROCHO SHEEHAN on 06/13/21 0345 Tamsulosin HCl (Flomax) 0.4 Mg Cap, 0.4 MG PO HS Prescribed by: JAYLEN MCDONOUGH on 06/07/21 0880 Review of Systems Review of Systems Constitutional: no symptoms reported EENTM: no symptoms reported Respiratory: no symptoms reported Cardiovascular: no symptoms reported Gastrointestinal: no symptoms reported Genitourinary: no symptoms reported Musculoskeletal: no symptoms reported Skin: no symptoms reported Psychiatric/Neurological: See HPI Hematologic/Lymphatic: No Symptoms Reported Immunological/Allergic: no symptoms reported Past Ciubhwo-Ohllwp-Sdhcdk Hx Patient Social History Tobacco Use?: No Smoking Status: Never a Smoker Use of E-Cig and/or Vaping dev: Yes E-Cig or Vaping type used: Nicotine Use of E-Cig and/or Vaping Aníbal: Current Everyday User Substance use?: Yes Substance type: Marijuana Alcohol Use?: No Pt feels they are or have been: No Immunizations Up To Date Influenza Vaccine Up-to-Date: No; Not Current Past Medical History Surgery/Hospitalization HX: ADHD Surgeries: Yes (WRIST SURGERY; TESTICULAR SURGERY) Orthopedic, Testicular Respiratory: No Cardiac: No Neurological: No Genitourinary: Yes (TESTICULAR SURGERY-DOES NOT KNOW DETAILS) Gastrointestinal: No Musculoskeletal: Yes (WRIST FRACTURE/REPAIR) Fractures Endocrine: No HEENT: No Cancer: No Psychosocial: Yes (PARANOIA; MULTIPLE PSYCH ADMITS) ADD/ADHD, Sleep Difficulties, Anxiety, Schizophrenia Integumentary: No Blood Disorders: No Physical Exam Vital Signs Vital Signs - First Documented 01/01/22 21:29 Temp 36.8 Pulse 80 Resp 18 B/P (MAP) 136/83 (100) Pulse Ox 100 O2 Delivery Room Air Capillary Refill : Less Than 3 Seconds Height, Weight, BMI Height: '" Weight: lbs. oz. kg; 27.00 BMI Method: General Appearance: No Apparent Distress, WD/WN, Anxious HEENT: PERRL/EOMI Neck: Normal Inspection Respiratory: Normal Breath Sounds Cardiovascular: Regular Rate, Rhythm Gastrointestinal: Non Tender Extremity: Normal Inspection Neurologic/Psychiatric: Alert, Oriented x3, No Motor/Sensory Deficits, dental claims processor II- XII Norm as Tested, Other (PARANOIA, ANXIOUS. ) Skin: Normal Color, Warm/Dry, Other (NO EXTERNAL EVIDENCE OF TRAUMA/ SELF- INJURY) Progress/Results/Core Measures Suspected Sepsis SIRS Temperature: Pulse: 80 Respiratory Rate: 18 Laboratory Tests 01/01/22 22:06: White Blood Count 6.6 Blood Pressure 136 /83 Mean: 100 Laboratory Tests 01/01/22 22:06: Creatinine 0.76, Platelet Count 164, Total Bilirubin 1.0 Results/Orders Lab Results Laboratory Tests Test 01/01/22 22:06 01/01/22 22:48 Range/Units White Blood Count 6.6 4.3-11.0 10^3/uL Red Blood Count 4.36 4.30-5.52 10^6/uL Hemoglobin 14.0 13.3-17.7 g/dL Hematocrit 40 40-54 % Mean Corpuscular Volume 91 80-99 fL Mean Corpuscular Hemoglobin 32 25-34 pg Mean Corpuscular Hemoglobin Concent 35 32-36 g/dL Red Cell Distribution Width 12.8 10.0-14.5 % Platelet Count 164 130-400 10^3/uL Mean Platelet Volume 10.5 9.0-12.2 fL Immature Granulocyte % (Auto) 0 % Neutrophils (%) (Auto) 58 42-75 % Lymphocytes (%) (Auto) 30 12-44 % Monocytes (%) (Auto) 10 0-12 % Eosinophils (%) (Auto) 2 0-10 % Basophils (%) (Auto) 1 0-10 % Neutrophils # (Auto) 3.8 1.8-7.8 10^3/uL Lymphocytes # (Auto) 2.0 1.0-4.0 10^3/uL Monocytes # (Auto) 0.7 0.0-1.0 10^3/uL Eosinophils # (Auto) 0.1 0.0-0.3 10^3/uL Basophils # (Auto) 0.1 0.0-0.1 10^3/uL Immature Granulocyte # (Auto) 0.0 0.0-0.1 10^3/uL Sodium Level 140 135-145 MMOL/L Potassium Level 4.1 3.6-5.0 MMOL/L Chloride Level 104 98-107 MMOL/L Carbon Dioxide Level 24 21-32 MMOL/L Anion Gap 12 5-14 MMOL/L Blood Urea Nitrogen 29 H 7-18 MG/DL Creatinine 0.76 0.60-1.30 MG/DL Estimat Glomerular Filtration Rate 129 BUN/Creatinine Ratio 38 Glucose Level 89 70-105 MG/DL Calcium Level 9.6 8.5-10.1 MG/DL Corrected Calcium 8.5-10.1 MG/DL Total Bilirubin 1.0 0.1-1.0 MG/DL Aspartate Amino Transf (AST/SGOT) 15 5-34 U/L Alanine Aminotransferase (ALT/SGPT) 15 0-55 U/L Alkaline Phosphatase 54 40-136 U/L Total Protein 7.1 6.4-8.2 GM/DL Albumin 4.7 H 3.2-4.5 GM/DL Salicylates Level < 5.0 L 5.0-20.0 MG/DL Acetaminophen Level < 10 L 10-30 UG/ML Serum Alcohol < 10 <10 MG/DL Urine Color YELLOW Urine Clarity CLEAR Urine pH 5.5 5-9 Urine Specific [place] >=1.030 1.016-1.022 Urine Protein TRACE H NEGATIVE Urine Glucose (UA) NEGATIVE NEGATIVE Urine Ketones NEGATIVE NEGATIVE Urine Nitrite NEGATIVE NEGATIVE Urine Bilirubin NEGATIVE NEGATIVE Urine Urobilinogen 0.2 < = 1.0 MG/DL Urine Leukocyte Esterase NEGATIVE NEGATIVE Urine RBC (Auto) NEGATIVE NEGATIVE Urine RBC NONE /HPF Urine WBC NONE /HPF Urine Squamous Epithelial Cells NONE /HPF Urine Renal Epithelial Cells NONE /HPF Urine Crystals NONE /LPF Urine Bacteria NEGATIVE /HPF Urine Casts NONE /LPF Urine Mucus NEGATIVE /LPF Urine Other FEW SPERM H /HPF Urine Culture Indicated NO Urine Opiates Screen NEGATIVE NEGATIVE Urine Oxycodone Screen NEGATIVE NEGATIVE Urine Methadone Screen NEGATIVE NEGATIVE Urine Propoxyphene Screen NEGATIVE NEGATIVE Urine Barbiturates Screen NEGATIVE NEGATIVE Ur Tricyclic Antidepressants Screen NEGATIVE NEGATIVE Urine Phencyclidine Screen NEGATIVE NEGATIVE Urine Amphetamines Screen POSITIVE H NEGATIVE Urine Methamphetamines Screen NEGATIVE NEGATIVE Urine Benzodiazepines Screen NEGATIVE NEGATIVE Urine Cocaine Screen NEGATIVE NEGATIVE Urine Cannabinoids Screen POSITIVE H NEGATIVE My Orders Orders - SISSYJAROCHO K DO Ekg Tracing (01/01/22 21:49) Acetaminophen (01/01/22 21:49) Alcohol (01/01/22 21:49) Cbc With Automated Diff (01/01/22 21:49) Comprehensive Metabolic Panel (01/01/22 21:49) Drug Screen Stat (Urine) (01/01/22 21:49) Salicylate (01/01/22 21:49) Ua Culture If Indicated (01/01/22 21:49) Hydroxyzine Cap/Tab (Vistaril) (01/01/22 23:30) Vital Signs/I&O 01/01/22 01/01/22 21:29 23:23 Temp 36.8 Pulse 80 72 Resp 18 18 B/P (MAP) 136/83 (100) 114/68 Pulse Ox 100 100 O2 Delivery Room Air Room Air Capillary Refill : Less Than 3 Seconds Blood Pressure Mean: 100 Progress Note : Progress Note LENGTHY DISCUSSION WITH PATIENT' PT IS NOT SUICIDAL OR HOMICIDAL,AND DOES NOT WANT ANY MENTAL HEALTH EVALUATION TONIGHT. HE JUST WANTS SOMETHING SO HE CAN SLEEP TONIGHT GIVEN HYDROXYZINE. STRESSED THE IMPORTANCE OF FOLLOW UP WITH DR. SEPULVEDA FOR FURTHER CARE, WELL MENTAL HEALTH ECG Initial ECG Impression Date: Jan 01, 2022 Initial ECG Impression Time: 22:01 Initial ECG Rate: 72 Initial ECG Rhythm: Normal Sinus Departure Impression Primary Impression: Sleep disturbance Additional Impressions: Marijuana use PRESCRIPTION AMPHETAMINE USE Anxiety Disposition: 01 HOME, SELF-CARE Condition: Stable Departure-Patient Inst. Decision time for Depature: 23:24 Referrals: NO,LOCAL PHYSICIAN (PCP) Primary Care Physician Patient Instructions: Drug Abuse Treatment, Marijuana Use and Addiction (DC), Tips for Getting Better Sleep Add. Discharge Instructions: NO MARIJUANA FOLLOW UP WITH YOUR DR THIS WEEK FOR FURTHER CARE. CALL IN THE MORNING TO SCHEDULE APPOINTMENT All discharge instructions reviewed with patient and/or family. Voiced understanding. JAROCHO SHEEHAN DO Jan 01, 2022 23:25
[2022-01-01] MEDS ORDERED: hydrOXYzine (VISTARIL/ATARAX) 25 MG capsule/tablet PO ONE (23:30)
== END 2022-01-01 23:36 | disposition home or self-care (01) ==
LOC: EDUNIT# 21:23 → ER 21:24
DX: G47.9 Sleep disorder, unspecified (principal); F12.90 Cannabis use, unspecified, uncomplicated; F17.290 Nicotine dependence, other tobacco product, uncomplicated; Z28.310 Unvaccinated for COVID-19
CPT/HCPCS: 80053; 80306; 81000; 85025; 93005; 99283; G0480 ×3; 36415; 80320; 80329

== ENCOUNTER 2022-02-02 22:07 | Emergency (ER) | payer BC ==
[~2022-02-02] VITALS: Ht 177.8 cm; Wt 70.3 kg
--- NOTE | 2022-02-02 22:17 | ED Psychosocial ---
General Chief Complaint: Psych/Social Disorder Stated Complaint: MULTIPLE WOUNDS Source: patient, EMS Exam Limitations: no limitations History of Present Illness Date Seen by Provider: Feb 02, 2022 Time Seen by Provider: 22:10 Initial Comments 26-year-old male presents to the emergency department via EMS. He reportedly used a dull knife at home to cut himself. When asked why he did this he states he wanted to relieve stress. When specifically asked if he wanted to he states no. He does have a history of schizophrenia system. He takes Adderall, Lexapro and tells me he has not had any recent changes in his medications. Prompting him to cut himself tonight, his neighbors upstairs were stomping on the floor. He tells me they do this every night and it has been at least "300 days since have had a full night sleep." He describes noises that wake him up every 20 minutes or so. He also states that people flashed their bright lights incessantly into their windows. He denies any medical concerns at this time. He denies any suicidal or homicidal ideation. Allergies and Home Medications Allergies Coded Allergies: No Known Drug Allergies (Unverified , 06/07/21) Patient Home Medication List Home Medication List Reviewed: Yes Phenazopyridine HCl (Pyridium) 200 Mg Tablet, 1 TAB PO TID Prescribed by: JAROCHO SHEEHAN on 06/13/21 5655 Tamsulosin HCl (Flomax) 0.4 Mg Cap, 0.4 MG PO HS Prescribed by: JAYLEN MCDONOUGH on 06/07/21 0835 Review of Systems Constitutional: no symptoms reported EENTM: no symptoms reported Respiratory: no symptoms reported Cardiovascular: no symptoms reported Gastrointestinal: no symptoms reported Genitourinary: no symptoms reported Musculoskeletal: no symptoms reported Skin: no symptoms reported Psychiatric/Neurological: Anxiety Past Uzxoznk-Zqdkkn-Wthzwu Hx Patient Social History Tobacco Use?: No Use of E-Cig and/or Vaping dev: No Substance use?: No Alcohol Use?: No Past Medical History Surgery/Hospitalization HX: ADHD Surgeries: Yes (WRIST SURGERY; TESTICULAR SURGERY) Orthopedic, Testicular Respiratory: No Cardiac: No Neurological: No Genitourinary: Yes (TESTICULAR SURGERY-DOES NOT KNOW DETAILS) Gastrointestinal: No Musculoskeletal: Yes (WRIST FRACTURE/REPAIR) Fractures Endocrine: No HEENT: No Cancer: No Psychosocial: Yes (PARANOIA; MULTIPLE PSYCH ADMITS) ADD/ADHD, Sleep Difficulties, Anxiety, Schizophrenia Integumentary: No Blood Disorders: No Family Medical History Reviewed Nursing Family Hx Physical Exam Vital Signs - First Documented 02/02/22 22:08 Temp 37.4 Pulse 89 Resp 20 B/P (MAP) 156/91 (112) Pulse Ox 100 O2 Delivery Room Air Capillary Refill : Height, Weight, BMI Height: '" Weight: lbs. oz. kg; 27.00 BMI Method: General Appearance: WD/WN, no apparent distress HEENT: PERRL/EOMI, normal ENT inspection, TMs normal, pharynx normal Neck: non-tender, supple, normal inspection Respiratory: chest non-tender, lungs clear, normal breath sounds, no respiratory distress, no accessory muscle use Cardiovascular: regular rate, rhythm, no edema, no gallop, no JVD, no murmur Gastrointestinal: normal bowel sounds, non tender, soft Extremities: normal range of motion, non-tender, normal capillary refill Neurologic/Psychiatric: alert, oriented x 3 Behavior/Eye Contact: avoids eye contact, other Skin: other (Scattered superficial abrasions anterior shins bilaterally, flexor surface of the forearm bilaterally, anterior superior abdominal wall. Only very superficial and not through the skin itself.) Progress/Results/Core Measures Results/Orders Lab Results Laboratory Tests Test 02/02/22 22:20 02/02/22 22:41 02/02/22 23:10 Range/Units White Blood Count 7.0 4.3-11.0 10^3/uL Red Blood Count 4.25 L 4.30-5.52 10^6/uL Hemoglobin 13.6 13.3-17.7 g/dL Hematocrit 39 L 40-54 % Mean Corpuscular Volume 93 80-99 fL Mean Corpuscular Hemoglobin 32 25-34 pg Mean Corpuscular Hemoglobin Concent 35 32-36 g/dL Red Cell Distribution Width 13.2 10.0-14.5 % Platelet Count 189 130-400 10^3/uL Mean Platelet Volume 10.5 9.0-12.2 fL Immature Granulocyte % (Auto) 0 % Neutrophils (%) (Auto) 68 42-75 % Lymphocytes (%) (Auto) 21 12-44 % Monocytes (%) (Auto) 9 0-12 % Eosinophils (%) (Auto) 2 0-10 % Basophils (%) (Auto) 0 0-10 % Neutrophils # (Auto) 4.7 1.8-7.8 10^3/uL Lymphocytes # (Auto) 1.5 1.0-4.0 10^3/uL Monocytes # (Auto) 0.6 0.0-1.0 10^3/uL Eosinophils # (Auto) 0.1 0.0-0.3 10^3/uL Basophils # (Auto) 0.0 0.0-0.1 10^3/uL Immature Granulocyte # (Auto) 0.0 0.0-0.1 10^3/uL Sodium Level 142 135-145 MMOL/L Potassium Level 4.4 3.6-5.0 MMOL/L Chloride Level 107 98-107 MMOL/L Carbon Dioxide Level 25 21-32 MMOL/L Anion Gap 10 5-14 MMOL/L Blood Urea Nitrogen 28 H 7-18 MG/DL Creatinine 0.71 0.60-1.30 MG/DL Estimat Glomerular Filtration Rate 131 BUN/Creatinine Ratio 39 Glucose Level 124 H 70-105 MG/DL Calcium Level 9.4 8.5-10.1 MG/DL Corrected Calcium 9.0 8.5-10.1 MG/DL Total Bilirubin 1.0 0.1-1.0 MG/DL Aspartate Amino Transf (AST/SGOT) 26 5-34 U/L Alanine Aminotransferase (ALT/SGPT) 30 0-55 U/L Alkaline Phosphatase 50 40-136 U/L Total Protein 6.9 6.4-8.2 GM/DL Albumin 4.5 3.2-4.5 GM/DL Salicylates Level < 5.0 L 5.0-20.0 MG/DL Acetaminophen Level < 10 L 10-30 UG/ML Serum Alcohol < 10 <10 MG/DL Urine Color YELLOW Urine Clarity CLEAR Urine pH 6.0 5-9 Urine Specific [place] >=1.030 1.016-1.022 Urine Protein TRACE H NEGATIVE Urine Glucose (UA) NEGATIVE NEGATIVE Urine Ketones NEGATIVE NEGATIVE Urine Nitrite NEGATIVE NEGATIVE Urine Bilirubin NEGATIVE NEGATIVE Urine Urobilinogen 0.2 < = 1.0 MG/DL Urine Leukocyte Esterase NEGATIVE NEGATIVE Urine RBC (Auto) NEGATIVE NEGATIVE Urine RBC NONE /HPF Urine WBC RARE /HPF Urine Squamous Epithelial Cells NONE /HPF Urine Crystals NONE /LPF Urine Bacteria TRACE /HPF Urine Casts NONE /LPF Urine Mucus SMALL H /LPF Urine Culture Indicated NO Urine Opiates Screen NEGATIVE NEGATIVE Urine Oxycodone Screen NEGATIVE NEGATIVE Urine Methadone Screen NEGATIVE NEGATIVE Urine Propoxyphene Screen NEGATIVE NEGATIVE Urine Barbiturates Screen NEGATIVE NEGATIVE Ur Tricyclic Antidepressants Screen NEGATIVE NEGATIVE Urine Phencyclidine Screen NEGATIVE NEGATIVE Urine Amphetamines Screen NEGATIVE NEGATIVE Urine Methamphetamines Screen NEGATIVE NEGATIVE Urine Benzodiazepines Screen NEGATIVE NEGATIVE Urine Cocaine Screen NEGATIVE NEGATIVE Urine Cannabinoids Screen POSITIVE H NEGATIVE SARS-CoV-2 RNA (RT-PCR) Not Detected Not Detecte My Orders Orders - JEFRY TORRES DO Ua Culture If Indicated (02/02/22 22:15) Cbc With Automated Diff (02/02/22 22:15) Comprehensive Metabolic Panel (02/02/22 22:15) Alcohol (02/02/22 22:15) Drug Screen Stat (Urine) (02/02/22 22:15) Acetaminophen (02/02/22 22:15) Salicylate (02/02/22 22:15) Ekg Tracing (02/02/22 22:15) Monitor-Rhythm Ecg Trace Only (02/02/22 22:15) Bh Status Checks/Observation O Q15M (02/02/22 22:15) Dipht,Pertuss(Acell),Tet Adult (Boostrix (02/02/22 22:30) Covid 19 Inhouse Test (02/02/22 23:09) Isolation Central Supply Req (02/02/22 23:09) Medications Given in ED Current Medications Medications Dose Ordered Sig/Sandra Route Start Time Stop Time Status Last Admin Dose Admin Diphtheria/ Tetanus/Acell Pertussis 0.5 ml ONCE ONCE IM 02/02/22 22:30 02/02/22 22:31 DC 02/02/22 22:30 0.5 ML Vital Signs/I&O 02/02/22 12 22:08 03:01 Temp 37.4 Pulse 89 74 Resp 20 20 B/P (MAP) 156/91 (112) 139/95 Pulse Ox 100 100 O2 Delivery Room Air Room Air EKG : Comment Sinus rhythm with a rate of 83 bpm. Normal intervals. Normal axis. No ST or T wave abnormalities. No ectopy. No STEMI. Departure Communication (Admissions) The patient is hemodynamically stable and medically cleared. He has been screened by psychiatric counselors and deemed safe for discharge home with a safety plan. Again he advised me that he did not want to harm himself and was seeking stress relief with superficial cuts. All are quite superficial barely breaking the skin. Tetanus was updated here in the emergency department. His mother is here and is discharged into the care of his mother. Impression Primary Impression: Self-harming behavior Disposition: 01 HOME, SELF-CARE Condition: Stable Departure-Patient Inst. Referrals: NO,LOCAL PHYSICIAN (PCP/Family) Primary Care Physician Patient Instructions: Self-Harm Add. Discharge Instructions: Adhere to safety plan as advised by psychiatric counselors. Use the outpatient resources to schedule an appointment with a psychiatrist, psychologist and counselor soon as possible. Return to the emergency department for any suicidal thoughts or if your symptoms change in any way concerning to you. All discharge instructions reviewed with patient and/or family. Voiced understanding. JEFRY TORRES DO Feb 02, 2022 22:17
[2022-02-02] MEDS ORDERED: TETANUS,DIPTH,PERTUSS P/F (BOOSTRIX) 0.5 ML VIAL IM ONE (22:30)
[2022-02-02 22:40] LABS: BASOPHILS % (AUTO) 0 % (0-10); EOSINOPHILS # (AUTO) 0.1 10^3/uL (0.0-0.3); EOSINOPHILS % (AUTO) 2 % (0-10); HEMATOCRIT 39 % (40-54); HEMOGLOBIN 13.6 g/dL (13.3-17.7); LYMPHOCYTES # (AUTO) 1.5 10^3/uL (1.0-4.0); LYMPHOCYTES % (AUTO) 21 % (12-44); MEAN CORPUSCULAR HEMOGLOBIN 32 pg (25-34); MEAN CORPUSCULAR HGB CONC 35 g/dL (32-36); MEAN CORPUSCULAR VOLUME 93 fL (80-99); MEAN PLATELET VOLUME 10.5 fL (9.0-12.2); MONOCYTES # (AUTO) 0.6 10^3/uL (0.0-1.0); MONOCYTES % (AUTO) 9 % (0-12); NEUTROPHILS # (AUTO) 4.7 10^3/uL (1.8-7.8); NEUTROPHILS % (AUTO) 68 % (42-75); PLATELET COUNT 189 10^3/uL (130-400)
[2022-02-02 22:41] LABS: ALBUMIN 4.5 GM/DL (3.2-4.5); CHLORIDE 107 MMOL/L (98-107); POTASSIUM 4.4 MMOL/L (3.6-5.0); SODIUM 142 MMOL/L (135-145)
[2022-02-02 22:43] LABS: CALCIUM 9.4 MG/DL (8.5-10.1)
[2022-02-02 22:44] LABS: GLUCOSE 124 MG/DL (70-105); TOTAL PROTEIN 6.9 GM/DL (6.4-8.2)
[2022-02-02 22:45] LABS: CARBON DIOXIDE 25 MMOL/L (21-32)
[2022-02-02 22:46] LABS: BILIRUBIN,URINE NEGATIVE (NEGATIVE); CLARITY,URINE CLEAR; COLOR,URINE YELLOW; GLUCOSE, URINE (UA) NEGATIVE (NEGATIVE); KETONES,URINE NEGATIVE (NEGATIVE); LEUKOCYTE ESTERASE ,URINE NEGATIVE (NEGATIVE); NITRITE,URINE NEGATIVE (NEGATIVE); PROTEIN,URINE TRACE (NEGATIVE)
[2022-02-02 22:48] LABS: ALKALINE PHOSPHATASE 50 U/L (40-136); CREATININE SERUM 0.71 MG/DL (0.60-1.30); GFR ESTIMATED 131
[2022-02-02 22:49] LABS: BUN/CREATININE RATIO 39
[2022-02-02 22:50] LABS: SALICYLATE < 5.0 MG/DL (5.0-20.0)
[2022-02-02 22:51] LABS: ALANINE AMINOTRANSFERASE 30 U/L (0-55)
[2022-02-02 22:52] LABS: ACETAMINOPHEN < 10 UG/ML (10-30)
[2022-02-02 22:54] LABS: BACTERIA,URINE TRACE /HPF; WBC,URINE RARE /HPF
[2022-02-02 22:57] LABS: AMPHETAMINE SCREEN, URINE NEGATIVE (NEGATIVE); BARBITURATE SCREEN URINE NEGATIVE (NEGATIVE); BENZODIAZEPINES SCREEN URINE NEGATIVE (NEGATIVE); CANNABINOID SCREEN, URINE POSITIVE (NEGATIVE); COCAINE SCREEN URINE NEGATIVE (NEGATIVE); METHADONE STAT NEGATIVE (NEGATIVE); OPIATE SCREEN URINE NEGATIVE (NEGATIVE); OXYCODONE STAT NEGATIVE (NEGATIVE); PROPOXYPHENE STAT NEGATIVE (NEGATIVE); TRICYCLIC ANTIDEPRESSANTS SCRE NEGATIVE (NEGATIVE)
[2022-02-03 03:01] VITALS: BP 139/95
== END 2022-02-03 04:12 | disposition home or self-care (01) ==
LOC: EDUNIT# 22:07 → ER 22:08
DX: S80.812A Abrasion, left lower leg, initial encounter (principal); S80.811A Abrasion, right lower leg, initial encounter; S50.812A Abrasion of left forearm, initial encounter; S50.811A Abrasion of right forearm, initial encounter; S30.811A Abrasion of abdominal wall, initial encounter; Z23 Encounter for immunization; Z28.310 Unvaccinated for COVID-19; Z20.822 Contact with and (suspected) exposure to COVID-19; X78.1XXA Intentional self-harm by knife, initial encounter; Y92.009 Unspecified place in unspecified non-institutional (private) residence as the place of occurrence of the external cause
CPT/HCPCS: 80053; 80306; 81000; 85025; 87636; 93005; 93041; 99284; G0480 ×3; 36415; 80320; 80329; 90715

== ENCOUNTER 2022-02-27 17:12 | Emergency (ER) | payer BC ==
[~2022-02-27] VITALS: Ht 177.8 cm; Wt 75.0 kg
[2022-02-27 17:40] VITALS: BP 155/94
--- NOTE | 2022-02-27 18:22 | ED Psychosocial ---
General Chief Complaint: Psych/Social Disorder Stated Complaint: MENTAL HEALTH SCREENING History of Present Illness Date Seen by Provider: Feb 27, 2022 Time Seen by Provider: 18:22 Initial Comments 26-year-old male was brought in by mental health staff with initial plan for screening and placement. However once patient reached the ER for mental health staff reassessed the patient and decided that he does not need to be placed or seen by the physician, and plan to send him home with a safety plan and ou tpatient follow-up. Patient does not want to be seen by a physician. Allergies and Home Medications Allergies Coded Allergies: No Known Drug Allergies (Unverified , 06/07/21) Patient Home Medication List Home Medication List Reviewed: Yes Phenazopyridine HCl (Pyridium) 200 Mg Tablet, 1 TAB PO TID Prescribed by: JAROCHO SHEEHAN on 06/13/21 0346 Tamsulosin HCl (Flomax) 0.4 Mg Cap, 0.4 MG PO HS Prescribed by: JAYLEN MCDONOUGH on 06/07/21 0808 Review of Systems Constitutional: no symptoms reported Past Tsdtyku-Qhlema-Sercfl Hx Past Medical History Surgery/Hospitalization HX: ADHD, SCHIZOPHRENIA, AUTISM Surgeries: Yes (WRIST SURGERY; TESTICULAR SURGERY) Orthopedic, Testicular Respiratory: No Cardiac: No Neurological: No Genitourinary: Yes (TESTICULAR SURGERY-DOES NOT KNOW DETAILS) Gastrointestinal: No Musculoskeletal: Yes (WRIST FRACTURE/REPAIR) Fractures Endocrine: No HEENT: No Cancer: No Psychosocial: Yes (PARANOIA; MULTIPLE PSYCH ADMITS) ADD/ADHD, Sleep Difficulties, Anxiety, Schizophrenia Integumentary: No Blood Disorders: No Physical Exam Vital Signs - First Documented 02/27/22 17:40 Temp 36.9 Pulse 82 Resp 16 B/P (MAP) 155/94 (114) Capillary Refill : Height, Weight, BMI Height: '" Weight: lbs. oz. kg; 22.00 BMI Method: General Appearance: WD/WN, no apparent distress Progress/Results/Core Measures Results/Orders My Orders Orders - FRANCISCO CANTU MD Acetaminophen (02/27/22 18:19) Alcohol (02/27/22 18:19) Cbc With Automated Diff (02/27/22 18:19) Comprehensive Metabolic Panel (02/27/22 18:19) Drug Screen Stat (Urine) (1/10/23 18:19) Salicylate (02/27/22 18:19) Ua Culture If Indicated (02/27/22 18:19) Covid 19 Inhouse Test (02/27/22 18:20) Influenza A And B By Pcr (02/27/22 18:20) Vital Signs/I&O 02/27/22 17:40 Temp 36.9 Pulse 82 Resp 16 B/P (MAP) 155/94 (114) Progress Progress Note : Progress Note LWBS/ DISCHARGED WITHOUT NEED FOR BEING SEEN: 26-year-old male was brought in by mental health staff with initial plan for screening and placement. However once patient reached the ER for mental health staff reassessed the patient and decided that he does not need to be placed or seen by the physician, and plans to send him home with a safety plan and outpatient follow-up. Patient does not want to be seen by a physician. Departure Impression Primary Impression: Psychiatric disorder Disposition: 07 AGAINST MEDICAL ADVICE (See note) Condition: Stable Departure-Patient Inst. Referrals: [facility] SEPULVEDA MD (PCP/Family) Primary Care Physician FRANCISCO CANTU MD Feb 27, 2022 18:22
== END 2022-02-27 19:04 | disposition left against medical advice (07) ==
LOC: EDUNIT# 17:12 → ER 17:14
DX: F99 Mental disorder, not otherwise specified (principal); Z20.822 Contact with and (suspected) exposure to COVID-19; Z28.310 Unvaccinated for COVID-19
CPT/HCPCS: 99285

== ENCOUNTER 2022-06-25 10:02 | Emergency (ER) | payer BC ==
[~2022-06-25] VITALS: Ht 177.8 cm; Wt 70.3 kg
--- NOTE | 2022-06-25 10:42 | ED General ---
General Chief Complaint: - Reproductive Stated Complaint: CANNOT URINATE Nursing Triage Note: PT AMBULATE TO ROOM 06 WITHOUT DIFFICULTY WITH C/O INFREQUENT URINATION. PT STATES TAHT HE HAS NOT BEEN URINATING MUCH USUAL. PT STATES HE HAS NOT BEEN DRINKING MUCH HE USUALLY DOES. PT DENIES PAIN OR PAIN WITH URINATION. Source of Information: Patient Exam Limitations: No Limitations (MARCUS BARKER MD) History of Present Illness Date Seen by Provider: June 25, 2022 Time Seen by Provider: 10:41 Initial Comments Patient is a 27-year-old male brought to the emergency department by [facility] chief complaint concern for self-harm suicidal statements last week. He states that the police showed up at his house this morning and told him that he needed to come into the emergency room. A mental health worker is also present. Patient's only complaint currently is difficulty urinating. He states that he is only urinating 1 time a week for the last several weeks. He denies dysuria, hematuria. No issues with this in the past. He states he ran out of his mental health meds a week ago. He is very frustrated that he has not been able to get a case filler or therapist. He states that he was in a mental health facility at [facility] in [place] 4 months ago after a reported suicide attempt. He states he has had no ongoing follow-up. He denies auditory or visual hallucinations. Denies suicidal thoughts currently. Denies homicidal ideation. He does seem to be a little paranoid as he states that as a result of his episode 4 months ago "everyone in the state" knows about him and he had to go to "[facility] to make it stop". He states that people accused him of hurting his mom. When I asked him to elaborate on that he states "it is complicated". He states he has been trying to get a hold of her this morning but cannot. Last tetanus Jan 2022 Timing/Duration: Constant Severity: Moderate (MARCUS BARKER MD) Allergies and Home Medications Allergies Coded Allergies: No Known Drug Allergies (Unverified , 06/07/21) Patient Home Medication List Home Medication List Reviewed: Yes (MARCUS BARKER MD) Phenazopyridine HCl (Pyridium) 200 Mg Tablet, 1 TAB PO TID Prescribed by: JAROCHO SHEEHAN on 06/13/21 0345 Tamsulosin HCl (Flomax) 0.4 Mg Cap, 0.4 MG PO HS Prescribed by: JAYLEN MCDONOUGH on 06/07/21 0845 Review of Systems Review of Systems Constitutional: see HPI EENTM: no symptoms reported Respiratory: no symptoms reported Cardiovascular: no symptoms reported Genitourinary: decreased output Musculoskeletal: no symptoms reported Skin: other ("cutting") Psychiatric/Neurological: Emotional Problems, Other (MARCUS BARKER MD) All Other Systems Reviewed Negative Unless Noted: Yes (MARCUS BARKER MD) Past Dygumfo-Xzwlpx-Eggzic Hx Patient Social History Tobacco Use?: No Smoking Status: Never a Smoker Smokeless Tobacco Frequency: Never a User Use of E-Cig and/or Vaping dev: Yes E-Cig or Vaping type used: Nicotine Use of E-Cig and/or Vaping Aníbal: Current Everyday User Substance use?: Yes Substance type: Marijuana Substance frequency: Daily Alcohol Use?: No Pt feels they are or have been: No (MARCUS BARKER MD) Past Medical History Surgery/Hospitalization HX: ADHD, SCHIZOPHRENIA, AUTISM Surgeries: Yes (WRIST SURGERY; TESTICULAR SURGERY) Orthopedic, Testicular Respiratory: No Cardiac: No Neurological: No Genitourinary: Yes (TESTICULAR SURGERY-DOES NOT KNOW DETAILS) Gastrointestinal: No Musculoskeletal: Yes (WRIST FRACTURE/REPAIR) Fractures Endocrine: No HEENT: No Cancer: No Psychosocial: Yes (PARANOIA; MULTIPLE PSYCH ADMITS) ADD/ADHD, Sleep Difficulties, Anxiety, Schizophrenia Integumentary: No Blood Disorders: No (MARCUS BARKER MD) Physical Exam Vital Signs Vital Signs - First Documented 06/25/22 10:09 Temp 36.0 Pulse 72 Resp 15 B/P (MAP) 132/88 (103) O2 Delivery Room Air (BRIANJEFRY Eneida ) Vital Signs Capillary Refill : Less Than 3 Seconds (MARCUS BARKER MD) Height, Weight, BMI Height: '" Weight: lbs. oz. kg; 22.00 BMI Method: General Appearance: No Apparent Distress, Thin, Other (dirty, dishevelled and unkepmt) Eyes: Bilateral Eye Normal Inspection, Bilateral Eye PERRL, Bilateral Eye EOMI HEENT: PERRL/EOMI Neck: Normal Inspection Respiratory: Lungs Clear, Normal Breath Sounds, No Accessory Muscle Use, No Respiratory Distress Cardiovascular: Regular Rate, Rhythm, Normal Peripheral Pulses Gastrointestinal: Normal Bowel Sounds, Non Tender, Soft Back: Normal Inspection, No CVA Tenderness Extremity: Normal Inspection, Normal Range of Motion Neurologic/Psychiatric: Alert, Oriented x3, No Motor/Sensory Deficits, Depressed Affect (flat. paranoid.) Skin: Normal Color, Warm/Dry, Other (multiple superficial scratches to the LUE. nothing to require sutures. 2 large "cross-shaped" areas of cut on anterior shins. No active bleeding. old healed scars to right forearm.) (MARCUS BARKER MD) Progress/Results/Core Measures Suspected Sepsis SIRS Temperature: Pulse: 72 Respiratory Rate: 15 Laboratory Tests 06/25/22 10:58: White Blood Count 6.0 Blood Pressure 132 /88 Mean: 103 Laboratory Tests 06/25/22 10:58: Creatinine 0.76, Platelet Count 144, Total Bilirubin 1.1H (MARCUS BARKER MD) Results/Orders Lab Results Laboratory Tests Test 06/25/22 10:58 06/25/22 12:23 06/25/22 16:04 Range/Units White Blood Count 6.0 4.3-11.0 10^3/uL Red Blood Count 4.71 4.30-5.52 10^6/uL Hemoglobin 14.9 13.3-17.7 g/dL Hematocrit 43 40-54 % Mean Corpuscular Volume 90 80-99 fL Mean Corpuscular Hemoglobin 32 25-34 pg Mean Corpuscular Hemoglobin Concent 35 32-36 g/dL Red Cell Distribution Width 12.2 10.0-14.5 % Platelet Count 144 130-400 10^3/uL Mean Platelet Volume 10.8 9.0-12.2 fL Immature Granulocyte % (Auto) 0 % Neutrophils (%) (Auto) 62 42-75 % Lymphocytes (%) (Auto) 29 12-44 % Monocytes (%) (Auto) 6 0-12 % Eosinophils (%) (Auto) 2 0-10 % Basophils (%) (Auto) 1 0-10 % Neutrophils # (Auto) 3.7 1.8-7.8 10^3/uL Lymphocytes # (Auto) 1.8 1.0-4.0 10^3/uL Monocytes # (Auto) 0.4 0.0-1.0 10^3/uL Eosinophils # (Auto) 0.1 0.0-0.3 10^3/uL Basophils # (Auto) 0.0 0.0-0.1 10^3/uL Immature Granulocyte # (Auto) 0.0 0.0-0.1 10^3/uL Sodium Level 139 135-145 MMOL/L Potassium Level 4.1 3.6-5.0 MMOL/L Chloride Level 107 98-107 MMOL/L Carbon Dioxide Level 20 L 21-32 MMOL/L Anion Gap 12 5-14 MMOL/L Blood Urea Nitrogen 23 H 7-18 MG/DL Creatinine 0.76 0.60-1.30 MG/DL Estimat Glomerular Filtration Rate 128 BUN/Creatinine Ratio 30 Glucose Level 90 70-105 MG/DL Calcium Level 9.0 8.5-10.1 MG/DL Corrected Calcium 8.7 8.5-10.1 MG/DL Total Bilirubin 1.1 H 0.1-1.0 MG/DL Aspartate Amino Transf (AST/SGOT) 18 5-34 U/L Alanine Aminotransferase (ALT/SGPT) 28 0-55 U/L Alkaline Phosphatase 48 40-136 U/L Total Protein 7.0 6.4-8.2 GM/DL Albumin 4.4 3.2-4.5 GM/DL Salicylates Level < 5.0 L 5.0-20.0 MG/DL Acetaminophen Level < 10 L 10-30 UG/ML Serum Alcohol < 10 <10 MG/DL Urine Color YELLOW Urine Clarity CLEAR Urine pH 6.0 5-9 Urine Specific Parker 1.025 H 1.016-1.022 Urine Protein TRACE H NEGATIVE Urine Glucose (UA) NEGATIVE NEGATIVE Urine Ketones NEGATIVE NEGATIVE Urine Nitrite NEGATIVE NEGATIVE Urine Bilirubin NEGATIVE NEGATIVE Urine Urobilinogen 0.2 < = 1.0 MG/DL Urine Leukocyte Esterase NEGATIVE NEGATIVE Urine RBC (Auto) NEGATIVE NEGATIVE Urine RBC NONE /HPF Urine WBC 0-2 /HPF Urine Crystals PRESENT H /LPF Urine Amorphous Sediment FEW LON URATES H /LPF Urine Bacteria NEGATIVE /HPF Urine Casts NONE /LPF Urine Mucus SMALL H /LPF Urine Other FEW SPERM H /HPF Urine Culture Indicated NO Urine Opiates Screen NEGATIVE NEGATIVE Urine Oxycodone Screen NEGATIVE NEGATIVE Urine Methadone Screen NEGATIVE NEGATIVE Urine Propoxyphene Screen NEGATIVE NEGATIVE Urine Barbiturates Screen NEGATIVE NEGATIVE Ur Tricyclic Antidepressants Screen NEGATIVE NEGATIVE Urine Phencyclidine Screen NEGATIVE NEGATIVE Urine Amphetamines Screen POSITIVE H NEGATIVE Urine Methamphetamines Screen NEGATIVE NEGATIVE Urine Benzodiazepines Screen NEGATIVE NEGATIVE Urine Cocaine Screen NEGATIVE NEGATIVE Urine Cannabinoids Screen POSITIVE H NEGATIVE SARS-CoV-2 RNA (RT-PCR) Not Detected Not Detecte (JEFRY TORRES DO) Vital Signs/I&O 06/25/22 10:09 Temp 36.0 Pulse 72 Resp 15 B/P (MAP) 132/88 (103) O2 Delivery Room Air (JEFRY TORRES DO) Vital Signs/I&O Capillary Refill : Less Than 3 Seconds (MARCUS BARKER MD) Blood Pressure Mean: 103 Progress Note : Time: 06:18 Progress Note Patient seen and evaluated by me. Evaluation includes physical exam, CBC, CH12, urine drug screen, UA, aspirin, acetaminophen, alcohol levels, ekg as well as covid test. Patient's physical exam pertinent for disheveled, dirty appearing thin male mild mental distress. Heart is regular, lungs are clear, abdomen is soft and benign. No lower abdominal distention consistent with concern for urinary retention. No lower extremity edema noted on physical exam. Multiple superficial wounds noted to the left forearm and bilateral lower extremities. He is awake, alert oriented x4. He does demonstrate some delusions of paranoia. Differential diagnosis based on history and physical, acute psychosis, int oxication. Patient's labs reviewed by me. CBC is normal, Chem-12 is normal slightly elevated total bilirubin at 1.1. Urinalysis is clear of infection. Toxicology positive for amphetamine consistent with his Adderall prescription as well as THC. Alcohol, aspirin and Tylenol levels undetectable. EKG is unremarkable. COVID test is negative. Patient has no clinical or objective findings concerning for urinary tract infection, acute urinary retention, acute kidney injury/renal failure. Suspect his "problems urinating" stem from dehydration/ medication side effect. the patient states that he has not been eating and drinking very much in the last several days. He has been noted to eat and drink here in the department. He has ambulated back and forth to the bathroom multiple times - appropriately. Per records review about 1-2 years ago the patient had several visits for urinary retention - he was referred to Urology, but never followed up. Currently on no medications for this issue. Patient, again, has no signs of retention here in the department. He was given 5 mg of Zyprexa orally yesterday for some agitation/anxiety. Per overnight physician here in the ED no issues with behaviors. Patient is pending transfer to [facility] this morning. Voluntary status. (MARCUS BARKER MD) Progress Note : Time: 05:46 Progress Note Patient remained calm and cooperative for the duration of the shift. Has been accepted to [facility]. Pending transport this morning. (JEFRY TORRES DO) ECG Initial ECG Impression Date: June 25, 2022 Initial ECG Impression Time: 11:08 Initial ECG Rate: 61 Initial ECG Rhythm: Normal Sinus Initial ECG Intervals: Normal Initial ECG Impression: Normal (MARCUS BARKER MD) Departure Impression Primary Impression: Paranoia (psychosis) Additional Impressions: Medical non-compliance Self-harming behavior Superficial laceration of forearm Superficial laceration of lower extremity Disposition: 02 XFER [facility] Condition: Stable Transfer Transfer Reason: Exceeds level of care Transfer Progress Notes accepted to [facility] in [place], [place] last pm Transfer Time: 09:30 Transfer Facility: [facility] Method of Transfer: Private Vehicle (MARCUS BARKER MD) Departure-Patient Inst. Referrals: [facility] MD (PCP/Family) Primary Care Physician MARCUS BARKER MD June 25, 2022 10:42 JEFRY TORRES DO June 26, 2022 05:47
[2022-06-25 11:06] LABS: BASOPHILS % (AUTO) 1 % (0-10); EOSINOPHILS # (AUTO) 0.1 10^3/uL (0.0-0.3); EOSINOPHILS % (AUTO) 2 % (0-10); HEMATOCRIT 43 % (40-54); HEMOGLOBIN 14.9 g/dL (13.3-17.7); LYMPHOCYTES # (AUTO) 1.8 10^3/uL (1.0-4.0); LYMPHOCYTES % (AUTO) 29 % (12-44); MEAN CORPUSCULAR HEMOGLOBIN 32 pg (25-34); MEAN CORPUSCULAR HGB CONC 35 g/dL (32-36); MEAN CORPUSCULAR VOLUME 90 fL (80-99); MEAN PLATELET VOLUME 10.8 fL (9.0-12.2); MONOCYTES # (AUTO) 0.4 10^3/uL (0.0-1.0); MONOCYTES % (AUTO) 6 % (0-12); NEUTROPHILS # (AUTO) 3.7 10^3/uL (1.8-7.8); NEUTROPHILS % (AUTO) 62 % (42-75); PLATELET COUNT 144 10^3/uL (130-400)
[2022-06-25 11:16] LABS: CHLORIDE 107 MMOL/L (98-107); POTASSIUM 4.1 MMOL/L (3.6-5.0); SODIUM 139 MMOL/L (135-145)
[2022-06-25 11:17] LABS: ALBUMIN 4.4 GM/DL (3.2-4.5)
[2022-06-25 11:19] LABS: GLUCOSE 90 MG/DL (70-105)
[2022-06-25 11:20] LABS: CARBON DIOXIDE 20 MMOL/L (21-32)
[2022-06-25 11:21] LABS: BILIRUBIN,TOTAL 1.1 MG/DL (0.1-1.0)
[2022-06-25 11:23] LABS: ALKALINE PHOSPHATASE 48 U/L (40-136); CREATININE SERUM 0.76 MG/DL (0.60-1.30); GFR ESTIMATED 128
[2022-06-25 11:24] LABS: BUN/CREATININE RATIO 30
[2022-06-25 11:26] LABS: ALANINE AMINOTRANSFERASE 28 U/L (0-55); SALICYLATE < 5.0 MG/DL (5.0-20.0)
[2022-06-25 11:33] LABS: ACETAMINOPHEN < 10 UG/ML (10-30)
[2022-06-25 12:30] LABS: BILIRUBIN,URINE NEGATIVE (NEGATIVE); CLARITY,URINE CLEAR; COLOR,URINE YELLOW; GLUCOSE, URINE (UA) NEGATIVE (NEGATIVE); KETONES,URINE NEGATIVE (NEGATIVE); LEUKOCYTE ESTERASE ,URINE NEGATIVE (NEGATIVE); NITRITE,URINE NEGATIVE (NEGATIVE); PROTEIN,URINE TRACE (NEGATIVE)
[2022-06-25 12:43] LABS: AMPHETAMINE SCREEN, URINE POSITIVE (NEGATIVE); BARBITURATE SCREEN URINE NEGATIVE (NEGATIVE); BENZODIAZEPINES SCREEN URINE NEGATIVE (NEGATIVE); CANNABINOID SCREEN, URINE POSITIVE (NEGATIVE); COCAINE SCREEN URINE NEGATIVE (NEGATIVE); METHADONE STAT NEGATIVE (NEGATIVE); OPIATE SCREEN URINE NEGATIVE (NEGATIVE); OXYCODONE STAT NEGATIVE (NEGATIVE); PROPOXYPHENE STAT NEGATIVE (NEGATIVE); TRICYCLIC ANTIDEPRESSANTS SCRE NEGATIVE (NEGATIVE)
[2022-06-25 12:45] LABS: AMORPHOUS SEDIMENT,UR FEW AMOR URATES /LPF; BACTERIA,URINE NEGATIVE /HPF; URINE OTHER FEW SPERM /HPF; WBC,URINE 0-2 /HPF
[2022-06-25] MEDS ORDERED: OLANZapine 5 MG ODT (ZyPREXA ZYDIS) PO ONE (16:30)
[2022-06-26 09:25] VITALS: BP 124/81
== END 2022-06-26 09:25 | disposition short-term general hospital (02) ==
LOC: EDUNIT# 10:02 → ER 10:04
DX: S51.811A Laceration without foreign body of right forearm, initial encounter (principal); S81.812A Laceration without foreign body, left lower leg, initial encounter; F22 Delusional disorders; F17.290 Nicotine dependence, other tobacco product, uncomplicated; Z91.148 Patient's other noncompliance with medication regimen for other reason; Z20.822 Contact with and (suspected) exposure to COVID-19; Z28.310 Unvaccinated for COVID-19; X83.8XXA Intentional self-harm by other specified means, initial encounter
CPT/HCPCS: 80053; 80306; 81000; 85025; 87636; 93005; 93041; 99284; G0480 ×3; 36415; 80320; 80329

== ENCOUNTER 2022-07-04 17:41 | Emergency (ER) | payer BC ==
[~2022-07-04] VITALS: Ht 177 cm; Wt 70.0 kg
--- NOTE | 2022-07-04 18:31 | ED Psychosocial ---
General Stated Complaint: PSYCH Source: patient Exam Limitations: no limitations (JENNI ELAM MD) History of Present Illness Date Seen by Provider: July 04, 2022 Time Seen by Provider: 18:10 Initial Comments Here with complicated mental health with report of self-harm. Apparently he was at [facility] recently and was just discharged yesterday. He had he apparently had sent some pictures of wounds on his legs that there was concerns of June self-harm. Patient states that he does have chronic wounds on his legs but nothing new and he is just picking the scabs but not really cutting. He has cross forms on his shins on both legs that are not currently bleeding. He has old cutting wounds to bilateral arms. Patient states that he had gone to his previous residence and was trying to get his property. There is a different is/it project manager there who was yelling at him and this got him upset. He states that his mind then started going faster than he can keep up with and he was texting people different things and some of it was not true. He denies suicidal or homicidal ideations. Denies constitutional symptoms including nausea, vomiting, diarrhea, fever or breathing problems. Denies sore throat, runny nose or cough. Timing/Duration: this afternoon Severity: moderate Associated Symptoms: impaired concentration, injury (JENNI ELAM MD) Allergies and Home Medications Allergies Coded Allergies: No Known Drug Allergies (Unverified , 06/07/21) Patient Home Medication List Home Medication List Reviewed: Yes (JENNI ELAM MD) Phenazopyridine HCl (Pyridium) 200 Mg Tablet, 1 TAB PO TID Prescribed by: JAROCHO MURRAY on 06/13/21 0345 Tamsulosin HCl (Flomax) 0.4 Mg Cap, 0.4 MG PO HS Prescribed by: JAYLEN MCDONOUGH on 06/07/21 0868 Review of Systems Constitutional: see HPI; No chills, No fever EENTM: No nose congestion, No throat pain Respiratory: No cough, No short of breath Cardiovascular: No chest pain, No edema Gastrointestinal: No diarrhea, No nausea, No vomiting Genitourinary: no symptoms reported Musculoskeletal: no symptoms reported Skin: see HPI, lesions Psychiatric/Neurological: Anxiety, Emotional Problems (JENNI ELAM MD) Past Hhxyuhw-Dzzplv-Ltzruz Hx Patient Social History Tobacco Use?: No Use of E-Cig and/or Vaping dev: No Substance use?: No Alcohol Use?: No (JENNI ELAM MD) Past Medical History Surgery/Hospitalization HX: ADHD, SCHIZOPHRENIA, AUTISM Surgeries: Yes (WRIST SURGERY; TESTICULAR SURGERY) Orthopedic, Testicular Respiratory: No Cardiac: No Neurological: No Genitourinary: Yes (TESTICULAR SURGERY-DOES NOT KNOW DETAILS) Gastrointestinal: No Musculoskeletal: Yes (WRIST FRACTURE/REPAIR) Fractures Endocrine: No HEENT: No Cancer: No Psychosocial: Yes (PARANOIA; MULTIPLE PSYCH ADMITS) ADD/ADHD, Sleep Difficulties, Anxiety, Schizophrenia Integumentary: No Blood Disorders: No (JENNI ELAM MD) Family Medical History Reviewed Nursing Family Hx (JENNI ELAM MD) Physical Exam Vital Signs - First Documented 07/04/22 07/05/22 07/05/22 18:00 07:56 15:20 Temp 36.5 Pulse 94 Resp 16 B/P (MAP) 141/100 (114) Pulse Ox 98 O2 Delivery Room Air (MARCUS BARKER MD) Capillary Refill : (JENNI ELAM MD) Height, Weight, BMI Height: '" Weight: lbs. oz. kg; 22.00 BMI Method: General Appearance: WD/WN, no apparent distress HEENT: PERRL/EOMI, pharynx normal Neck: full range of motion, supple Respiratory: lungs clear, normal breath sounds Cardiovascular: regular rate, rhythm, no murmur Gastrointestinal: non tender, soft Extremities: non-tender, normal inspection Neurologic/Psychiatric: alert, oriented x 3 Appearance/Memory: disheveled Behavior/Eye Contact: cooperative, decreased rate of speech Thoughts/Hallucinations: flight of ideas, jain Skin: warm/dry, other (Multiple old cutting wounds to bilateral EPPLER extremities that seem to be healed. On each lower extremity across the anterior tibia he has cutting araiza in the form of a large cross on both legs.) (JENNI ELAM MD) Progress/Results/Core Measures Results/Orders Lab Results Laboratory Tests Test 07/04/22 18:38 07/04/22 18:46 Range/Units Urine Color YELLOW Urine Clarity CLEAR Urine pH 7.5 5-9 Urine Specific [place] 1.010 L 1.016-1.022 Urine Protein 1+ H NEGATIVE Urine Glucose (UA) NEGATIVE NEGATIVE Urine Ketones NEGATIVE NEGATIVE Urine Nitrite NEGATIVE NEGATIVE Urine Bilirubin NEGATIVE NEGATIVE Urine Urobilinogen 0.2 < = 1.0 MG/DL Urine Leukocyte Esterase NEGATIVE NEGATIVE Urine RBC (Auto) NEGATIVE NEGATIVE Urine RBC 0-2 /HPF Urine WBC 5-10 H /HPF Urine Squamous Epithelial Cells NONE /HPF Urine Crystals NONE /LPF Urine Bacteria TRACE /HPF Urine Casts NONE /LPF Urine Mucus LARGE H /LPF Urine Culture Indicated NO Urine Opiates Screen NEGATIVE NEGATIVE Urine Oxycodone Screen NEGATIVE NEGATIVE Urine Methadone Screen NEGATIVE NEGATIVE Urine Propoxyphene Screen NEGATIVE NEGATIVE Urine Barbiturates Screen NEGATIVE NEGATIVE Ur Tricyclic Antidepressants Screen NEGATIVE NEGATIVE Urine Phencyclidine Screen NEGATIVE NEGATIVE Urine Amphetamines Screen POSITIVE H NEGATIVE Urine Methamphetamines Screen NEGATIVE NEGATIVE Urine Benzodiazepines Screen NEGATIVE NEGATIVE Urine Cocaine Screen NEGATIVE NEGATIVE Urine Cannabinoids Screen POSITIVE H NEGATIVE SARS-CoV-2 RNA (RT-PCR) Not Detected Not Detecte White Blood Count 5.5 4.3-11.0 10^3/uL Red Blood Count 4.96 4.30-5.52 10^6/uL Hemoglobin 15.6 13.3-17.7 g/dL Hematocrit 45 40-54 % Mean Corpuscular Volume 90 80-99 fL Mean Corpuscular Hemoglobin 32 25-34 pg Mean Corpuscular Hemoglobin Concent 35 32-36 g/dL Red Cell Distribution Width 12.7 10.0-14.5 % Platelet Count 159 130-400 10^3/uL Mean Platelet Volume 10.6 9.0-12.2 fL Immature Granulocyte % (Auto) 0 % Neutrophils (%) (Auto) 55 42-75 % Lymphocytes (%) (Auto) 36 12-44 % Monocytes (%) (Auto) 7 0-12 % Eosinophils (%) (Auto) 2 0-10 % Basophils (%) (Auto) 1 0-10 % Neutrophils # (Auto) 3.0 1.8-7.8 10^3/uL Lymphocytes # (Auto) 2.0 1.0-4.0 10^3/uL Monocytes # (Auto) 0.4 0.0-1.0 10^3/uL Eosinophils # (Auto) 0.1 0.0-0.3 10^3/uL Basophils # (Auto) 0.0 0.0-0.1 10^3/uL Immature Granulocyte # (Auto) 0.0 0.0-0.1 10^3/uL Sodium Level 141 135-145 MMOL/L Potassium Level 4.1 3.6-5.0 MMOL/L Chloride Level 105 98-107 MMOL/L Carbon Dioxide Level 25 21-32 MMOL/L Anion Gap 11 5-14 MMOL/L Blood Urea Nitrogen 12 7-18 MG/DL Creatinine 0.88 0.60-1.30 MG/DL Estimat Glomerular Filtration Rate 122 BUN/Creatinine Ratio 14 Glucose Level 90 70-105 MG/DL Calcium Level 9.8 8.5-10.1 MG/DL Corrected Calcium 8.5-10.1 MG/DL Total Bilirubin 1.4 H 0.1-1.0 MG/DL Aspartate Amino Transf (AST/SGOT) 16 5-34 U/L Alanine Aminotransferase (ALT/SGPT) 23 0-55 U/L Alkaline Phosphatase 48 40-136 U/L Total Protein 7.3 6.4-8.2 GM/DL Albumin 4.9 H 3.2-4.5 GM/DL Salicylates Level < 5.0 L 5.0-20.0 MG/DL Acetaminophen Level < 10 L 10-30 UG/ML Serum Alcohol < 10 <10 MG/DL (MARCUS BARKER MD) My Orders Orders - MARCUS BARKER MD Citalopram Tablet (Celexa Tablet) (07/05/22 10:56) Lorazepam Tablet (Ativan Tablet) (07/05/22 15:45) Citalopram Tablet (Celexa Tablet) (07/06/22 10:49) (MARCUS BARKER MD) Vital Signs/I&O 07/06/22 07/06/22 02:11 08:33 Temp 36.4 Pulse 67 54 Resp 16 16 B/P (MAP) 126/93 (104) 125/83 (97) Pulse Ox 98 98 O2 Delivery Room Air Simple Mask (MARCUS BARKER MD) Progress Progress Note : Progress Note Seen and evaluated. Patient denies SI or HI and states that he was just upset earlier. He states he has no new wounds and denies current illness. Admits to saying things that were not true. He does slowly answer after periods of thought. Currently he is cooperative. He does state that he is hungry. We will initiate psych screening and we will order regular diet. [facility] here to do screening. Monitor patient. Differential diagnosis includes schizophrenia, suicidal ideations, psychosis 2023: Patient medically cleared for mental health admission. CBC is grossly normal. Chemistry is grossly normal. He is negative for COVID. Salicylates, EtOH and acetaminophen are negative. Drug screen does show amphetamine positive and he is prescribed this. He was also positive for marijuana. UA is nonconcerning. Mental health is working on placement now. [facility] has called and we will send chart to them for evaluation. 2204: We will give nicotine patch. Patient is otherwise resting peacefully currently. He has asked for reevaluation which we will not be able to do until tomorrow but he is currently on voluntary admission. Patient was informed excepted the fact that he could not be reevaluated till tomorrow. Monitor patient. 606: We are still pending placement. [facility] will reevaluate after 8 AM. Patient woke up and states that he has not slept well all night and he is very anxious. Observation of the patient through the night showed that it appeared that he slept quite well but we will go ahead and give Ativan 0.5 mg p.o. for anxiety. Pending placement. [facility] to be contacted today as well. Monitor patient. (JENNI ELAM MD) Progress Note #1: Time: 13:28 Progress Note Notified by the patient's nurse, BARBARA Roach that the patient refused breakfast. He had asked earlier for his home medications of lexapro and adderall. Lexapro is not on formulary at this hospital, therefore I spoke with the Pharmacist and we did an auto sub of 20mg of Celexa (which is the therapeutic equivalent to 10mg Lexapro). I was not comfortable giving the patient his adderall as he is in here for delusional behavior and on an involuntary hold. The patient has been resting comfortably in his room without any acute behaviors at this point and I do not want an amphetamine-based medication to potentially disrupt this. Marley offered the patient a lunch tray and he told her to choose a meal for him. It was brought to him and he subsequently threw it all on the floor. He has asked to be transferred to another hospital as I would not give him his a dderall. He has been contacting [facility] complaining about his treatment. VS reviewed from 12 noon. Stable Progress Note #2: Time: 15:58 Progress Note Patient requesting something for anxiety. 1mg of ativan PO ordered Progress Note #3: Time: 11:45 Progress Note Patient care assumed at shift change from Dr Murray; patient was and has been resting quietly. He has started to escalate behaviors again however. He is repeatedly coming out of his room, requesting adderall. Has been told multiple times that this medication is not appropriate for the emergency department. I have given him his am dose of 20mg celexa (therapeutic equivalent to 10mg karla pro). He has been offered a dose of ativan PO - he declined. He has come out acting belligerent with staff and sitter, slamming his door. A lunch tray was ordered for him. (MARCUS BARKER MD) Progress Note : Progress Note 1800--ASSUMED CARE FROM DR. BARKER, INVOLUNTARY PLACEMENT IS PENDING AT THIS TIME. PT IS EATING MEAL TRAY AT THIS TIME. 0155--PT WANTING SOMETHING TO EAT--MEAL TRAY ORDERED. ALSO WANTING ANXIETY MEDICATION--ATIVAN ORDERED. PT REMAINS CALM AND COOPERATIVE. 0600--CARE TURNED BACK OVER TO DR. BARKER AT SHIFT CHANGE. UNEVENTFUL NIGHT. PLACEMENT IS STILL PENDING. 1800--ASSUMED CARE OF PT AGAIN AT SHIFT CHANGE. PT HAS BEEN DECLINED AT [facility], AND IS PENDING PLACEMENT AT [facility] / INVOLUNTARY ADMIT. PT IS CALM AT THIS TIME. PT HAS BEEN GIVEN A DINNER TRAY. 1854--PT REQUESTING STOOL SOFTENER OR SOMETHING TO HELP MOVE HIS BOWELS. MIRALAX ORDERED. 1949--PT NOW WANTING MULTIPLE THINGS--WANTS ANOTHER MEAL TRAY ( HAS ALREADY HAD DINNER A SHORT WHILE AGO, AND HAD DOUBLE MEAL TRAYS EARLIER TODAY WELL) , WANTING ANXIETY MEDICATION, WANTING SLEEPING PILLS, HAS A LIST OF THINGS HE WANTS, ETC. PT HAS BEEN ADVISED THAT HE WOULD GET MEDICATIONS ON A SCHEDULED BASIS. 15 MINUTE CHECKS BEING DONE. 0015--PT RESTING QUIETLY. VITALS STABLE 0134--PT REQUESTING SOMETHING FOR ANXIETY. ATIVAN ORDERED. PT APPEARS CALM 0145--PT,NOW WANTING FOOD, MEAL TRAY ORDERED 0700--CARE TURNED OVER TO DR. KEITH AT SHIFT CHANGE. INVOLUNTARY ADMIT AT [facility] IS PENDING AT THIS TIME. PT SLEEPING SOUNDLY. VITALS HAVE BEEN STABLE. 15 MINUTE CHECKS CONTINUE 1800--ASSUMED CARE OF PT AGAIN AT SHIFT CHANGE, FROM DR. TORRES. PT IS PENDING INVOLUNTARY PLACEMENT AT [facility]. PT IS AWAKE AND QUIET AT THIS TIME. VITALS HAVE BEEN STABLE. 15 MINUTE CHECKS CONTINUE 1930--PT WANTING SOMETHING FOR ANXIETY AND FOR CONSTIPATION, MIRALAX AND ATIVAN ORDERED TO BE GIVEN ON A SCHEDULED BASIS. ANTICIPATE THAT PT WILL BE HERE FOR A FEW MORE DAYS, I HAVE BEEN INFORMED THAT PT IS 4TH IN LINE FOR ADMIT TO [facility], AND THEY ARE AT [facility] AT THIS TIME. PT IS SITTING QUIETLY AND COLORING AT THIS TIME.. 0600--CARE TURNED OVER TO DR. TORRES. UNEVENTFUL NIGHT. REMAINS ON 15 MINUTE CHECKS. 1800--ASSUMED CARE OF PT FROM DR. TORRES AT SHIFT CHANGE. PT IS AWAKE AND WALKING AROUND IN ROOM, INVOLUNTARY PLACEMENT AT [facility] PENDING. 2009--PT WANTING NICOTINE PATCH--ORDERED (JAROCHO MURRAY DO) Progress Note #1: Time: 17:27 Progress Note Patient assumed at 0600 shift change. He has been calm, cooperative during my shift. He is tolerating meals without difficulty. He did ask for something for anxiety 1 time and I gave him p.o. Ativan. He tolerated this well. I also gave him a nicotine patch. We are still pending placement. Progress Note #2: Time: 16:10 (07/10/22) Progress Note Does note that patient has been accepted by [facility]. I spoke to the physician for a doc to doc and he accepts. Patient transported in stable condition. (JEFRY TORRES DO) Initial ECG Impression Date: July 04, 2022 Initial ECG Impression Time: 18:34 Initial ECG Rate: 70 Initial ECG Rhythm: Normal Sinus Initial ECG Impression: Normal Comment Sinus rhythm with normal axis and normal intervals. No evidence of ST elevation HI. Interpreted by me. (JENNI ELAM MD) Departure Impression Primary Impression: Delusional disorder currently symptomatic Disposition: 02 XFER SHT-TRM HOSP Condition: Stable Departure-Patient Inst. Referrals: [facility] SEPULVED[facility] MD (PCP/Family) Primary Care Physician JNENI ELAM MD July 04, 2022 18:31 MARCUS BARKER MD July 05, 2022 13:33 JAROCHO MURRAY DO July 05, 2022 17:55 JEFRY TORRES DO July 08, 2022 17:28
[2022-07-04 18:47] LABS: BILIRUBIN,URINE NEGATIVE (NEGATIVE); CLARITY,URINE CLEAR; COLOR,URINE YELLOW; GLUCOSE, URINE (UA) NEGATIVE (NEGATIVE); KETONES,URINE NEGATIVE (NEGATIVE); LEUKOCYTE ESTERASE ,URINE NEGATIVE (NEGATIVE); NITRITE,URINE NEGATIVE (NEGATIVE); PH,URINE 7.5 (5-9); PROTEIN,URINE 1+ (NEGATIVE)
[2022-07-04 18:54] LABS: BASOPHILS % (AUTO) 1 % (0-10); EOSINOPHILS # (AUTO) 0.1 10^3/uL (0.0-0.3); EOSINOPHILS % (AUTO) 2 % (0-10); HEMATOCRIT 45 % (40-54); HEMOGLOBIN 15.6 g/dL (13.3-17.7); LYMPHOCYTES % (AUTO) 36 % (12-44); MEAN CORPUSCULAR HEMOGLOBIN 32 pg (25-34); MEAN CORPUSCULAR HGB CONC 35 g/dL (32-36); MEAN CORPUSCULAR VOLUME 90 fL (80-99); MEAN PLATELET VOLUME 10.6 fL (9.0-12.2); MONOCYTES # (AUTO) 0.4 10^3/uL (0.0-1.0); MONOCYTES % (AUTO) 7 % (0-12); NEUTROPHILS % (AUTO) 55 % (42-75); PLATELET COUNT 159 10^3/uL (130-400); WHITE BLOOD COUNT 5.5 10^3/uL (4.3-11.0)
[2022-07-04 18:57] LABS: BACTERIA,URINE TRACE /HPF; RBC,URINE 0-2 /HPF
[2022-07-04 18:59] LABS: AMPHETAMINE SCREEN, URINE POSITIVE (NEGATIVE); BARBITURATE SCREEN URINE NEGATIVE (NEGATIVE); BENZODIAZEPINES SCREEN URINE NEGATIVE (NEGATIVE); CANNABINOID SCREEN, URINE POSITIVE (NEGATIVE); COCAINE SCREEN URINE NEGATIVE (NEGATIVE); METHADONE STAT NEGATIVE (NEGATIVE); OPIATE SCREEN URINE NEGATIVE (NEGATIVE); OXYCODONE STAT NEGATIVE (NEGATIVE); PROPOXYPHENE STAT NEGATIVE (NEGATIVE); TRICYCLIC ANTIDEPRESSANTS SCRE NEGATIVE (NEGATIVE)
[2022-07-04 19:07] LABS: ALBUMIN 4.9 GM/DL (3.2-4.5); CHLORIDE 105 MMOL/L (98-107); POTASSIUM 4.1 MMOL/L (3.6-5.0); SODIUM 141 MMOL/L (135-145)
[2022-07-04 19:08] LABS: CALCIUM 9.8 MG/DL (8.5-10.1)
[2022-07-04 19:09] LABS: GLUCOSE 90 MG/DL (70-105)
[2022-07-04 19:10] LABS: TOTAL PROTEIN 7.3 GM/DL (6.4-8.2)
[2022-07-04 19:11] LABS: BILIRUBIN,TOTAL 1.4 MG/DL (0.1-1.0); CARBON DIOXIDE 25 MMOL/L (21-32)
[2022-07-04 19:13] LABS: ALKALINE PHOSPHATASE 48 U/L (40-136); CREATININE SERUM 0.88 MG/DL (0.60-1.30); GFR ESTIMATED 122
[2022-07-04 19:15] LABS: BUN/CREATININE RATIO 14
[2022-07-04 19:16] LABS: ALANINE AMINOTRANSFERASE 23 U/L (0-55); SALICYLATE < 5.0 MG/DL (5.0-20.0)
[2022-07-04 19:17] LABS: ACETAMINOPHEN < 10 UG/ML (10-30)
[2022-07-04] MEDS ORDERED: NICOTINE 21 MG (NICODERM) PATCH TD ONE (22:15)
[2022-07-04] MEDS ORDERED: MIRTAZAPINE 15 MG (REMERON) TAB PO STA (23:13)
[2022-07-05] MEDS ORDERED: LORazepam 0.5 MG (ATIVAN) TABLET PO STA (06:06)
[2022-07-05] MEDS ORDERED: LORazepam 1 MG (ATIVAN) TAB PO ONE (15:45)
[2022-07-06] MEDS ORDERED: LORazepam 0.5 MG (ATIVAN) TABLET PO STA (01:57)
[2022-07-06] MEDS ORDERED: NICOTINE 21 MG (NICODERM) PATCH TD ONE (15:45)
[2022-07-06] MEDS ORDERED: LORazepam 1 MG (ATIVAN) TAB PO ONE (15:45)
[2022-07-06] MEDS ORDERED: polyethylene glycoL POWDER 17 GM (MIRALAX) PACK PO ONE (19:00)
[2022-07-07] MEDS ORDERED: LORazepam 0.5 MG (ATIVAN) TABLET PO STA ×2 (01:35→15:22)
[2022-07-07] MEDS ORDERED: IBUPROFEN TABLET 200 MG TAB PO ONE (13:00)
[2022-07-07] MEDS ORDERED: LORazepam 1 MG (ATIVAN) TAB PO ONE (20:45)
[2022-07-08] MEDS ORDERED: LORazepam 0.5 MG (ATIVAN) TABLET PO STA (11:15)
[2022-07-08] MEDS: NICOTINE 21 MG (NICODERM) PATCH TD SCH (16:54)
[2022-07-08] MEDS: LORazepam 1 MG (ATIVAN) TAB PO SCH (19:30)
[2022-07-08] MEDS: polyethylene glycoL POWDER 17 GM (MIRALAX) PACK PO SCH ×2 (19:46→21:00)
[2022-07-08] MEDS ORDERED: LORazepam 1 MG (ATIVAN) TAB PO PRN (20:00)
[2022-07-09] MEDS: LORazepam 1 MG (ATIVAN) TAB PO SCH ×2 (09:23→20:37)
[2022-07-09] MEDS ORDERED: NICOTINE 21 MG (NICODERM) PATCH TD ONE (20:30)
[2022-07-09] MEDS: polyethylene glycoL POWDER 17 GM (MIRALAX) PACK PO SCH (21:41)
[2022-07-10] MEDS: LORazepam 1 MG (ATIVAN) TAB PO SCH (08:51)
[2022-07-10] MEDS: NICOTINE 21 MG (NICODERM) PATCH TD SCH (09:30)
[2022-07-10 13:51] VITALS: BP 140/93
[2022-07-10] MEDS ORDERED: NICOTINE 21 MG (NICODERM) PATCH TD SCH (20:00)
== END 2022-07-10 14:11 ==
LOC: EDUNIT# 17:41 → ER 17:42
DX: F22 Delusional disorders (principal); F41.9 Anxiety disorder, unspecified; Z20.822 Contact with and (suspected) exposure to COVID-19
CPT/HCPCS: 80053; 80306; 81000; 85025; 87636 ×2; 93005; 99283; G0480 ×3; 36415; 80320; 80329

== ENCOUNTER 2022-08-08 21:31 | Emergency (ER) | payer BC ==
[~2022-08-08] VITALS: Ht 177 cm; Wt 70.0 kg
--- NOTE | 2022-08-08 21:56 | ED GU-Female ---
General Chief Complaint: - Reproductive Stated Complaint: UNABLE TO URINATE Nursing Triage Note: REPORTS BEING UNABLE TO VOID SINCE 1300 TODAY. STATES HAS BEEN GETTING PROGRESSIVELY WORSE X1 WEEK. Source: patient Exam Limitations: no limitations History of Present Illness Date Seen by Provider: Aug 08, 2022 Time Seen by Provider: 21:53 Initial Comments Patient is a 27-year-old male with a history of urinary retention who presents to ED for no urine output since 1 PM today. States he has a history of urinary retention in the past requiring Tony catheter. States he has followed up with Dr. Skinner in the past and was told to leave the catheter in and he has never followed up. Patient states around 9 PM had a cute onset of right testicle or pain. Pain was described as sharp has improved some. History of testicle or torsion with ischemia 1 month ago. States he was seen in [place] and was treated nonoperative. Patient denies any fever, abdominal pain, chills, headache, dizziness, visual changes, nausea, vomiting, diarrhea Allergies and Home Medications Allergies Coded Allergies: No Known Drug Allergies (Unverified , 06/07/21) Patient Home Medication List Home Medication List Reviewed: Yes Levofloxacin (Levofloxacin) 500 Mg Tablet, 500 MG PO DAILY Prescribed by: BONNY PINEDO on 08/08/22 6794 Phenazopyridine HCl (Pyridium) 200 Mg Tablet, 1 TAB PO TID Prescribed by: JAROCHO SHEEHAN on 06/13/21 3775 Tamsulosin HCl (Flomax) 0.4 Mg Cap, 0.4 MG PO HS Prescribed by: JAYLEN MCDONOUGH on 06/07/21 4645 Review of Systems Review of Systems Constitutional: No chills, No diaphoresis, No malaise, No weakness EENTM: No hearing loss, No ear pain, No blurred vision Respiratory: No cough, No dyspnea on exertion Cardiovascular: No chest pain Gastrointestinal: No abdominal pain, No diarrhea, No nausea, No vomiting Genitourinary: denies burning, denies discharge; other (urinary retention) Musculoskeletal: No back pain, No joint pain, No joint swelling, No muscle pain Skin: No change in color, No change in hair/nails Psychiatric/Neurological: Denies Anxiety All Other Systemes Reviewed Negative Unless Noted: Yes Past Lkwfdov-Rmbqfk-Ehuwpp Hx Patient Social History Tobacco Use?: Yes Substance use?: No Alcohol Use?: Yes Alcohol Frequency: Once in a while Pt feels they are or have been: No Immunizations Up To Date First/Initial COVID19 Vaccinat: NA Past Medical History Surgery/Hospitalization HX: ADHD, SCHIZOPHRENIA, AUTISM, ANXIETY, INPATIENT PSYCH PLACEMENT, WRIST, TESTICULAR SX. Surgeries: Yes (WRIST SURGERY; TESTICULAR SURGERY) Orthopedic, Testicular Respiratory: No Cardiac: No Neurological: No Genitourinary: Yes (TESTICULAR SURGERY-DOES NOT KNOW DETAILS) Gastrointestinal: No Musculoskeletal: Yes (WRIST FRACTURE/REPAIR) Fractures Endocrine: No HEENT: No Cancer: No Psychosocial: Yes (PARANOIA; MULTIPLE PSYCH ADMITS) ADD/ADHD, Sleep Difficulties, Anxiety, Schizophrenia Integumentary: No Blood Disorders: No Physical Exam Vital Signs Vital Signs - First Documented 08/08/22 21:35 Temp 36.8 Pulse 82 Resp 16 B/P (MAP) 149/96 (113) Pulse Ox 100 O2 Delivery Room Air Capillary Refill : Less Than 3 Seconds Height, Weight, BMI Height: '" Weight: lbs. oz. kg; 22.00 BMI Method: General Appearance: WD/WN, no apparent distress HEENT: PERRL/EOMI, normal ENT inspection, TMs normal, pharynx normal Neck: non-tender, full range of motion, supple Cardiovascular: regular rate, rhythm, no edema, no gallop, no JVD Respiratory: chest non-tender, lungs clear, normal breath sounds, no respiratory distress, no accessory muscle use Gastrointestinal: normal bowel sounds, non tender, soft, no organomegaly Genital/Rectal: other (Right testicle or tenderness. No swelling, redness. No inguinal adenopathy. No palpable hernia) Back: normal inspection, no CVA tenderness Extremities: normal range of motion, non-tender, normal inspection, no pedal edema Neurologic/Psychiatric: gravity flow irrigator II-XII nml as tested, no motor/sensory deficits, alert, normal mood/affect, oriented x 3 Skin: normal color, warm/dry Progress/Results/Core Measures Suspected Sepsis SIRS Temperature: Pulse: 82 Respiratory Rate: 16 Laboratory Tests 08/08/22 22:04: White Blood Count 6.3 Blood Pressure 149 /96 Mean: 113 Laboratory Tests 08/08/22 22:04: Creatinine 0.73, Platelet Count 183, Total Bilirubin 0.8 Results/Orders Lab Results Laboratory Tests Test 08/08/22 21:58 08/08/22 22:04 Range/Units Urine Color YELLOW Urine Clarity CLEAR Urine pH 6.5 5-9 Urine Specific [place] 1.010 L 1.016-1.022 Urine Protein NEGATIVE NEGATIVE Urine Glucose (UA) NEGATIVE NEGATIVE Urine Ketones NEGATIVE NEGATIVE Urine Nitrite NEGATIVE NEGATIVE Urine Bilirubin NEGATIVE NEGATIVE Urine Urobilinogen 0.2 < = 1.0 MG/DL Urine Leukocyte Esterase NEGATIVE NEGATIVE Urine RBC (Auto) NEGATIVE NEGATIVE Urine RBC RARE /HPF Urine WBC RARE /HPF Urine Crystals PRESENT H /LPF Urine Amorphous Sediment FEW LON URATES H /LPF Urine Bacteria NEGATIVE /HPF Urine Casts NONE /LPF Urine Mucus NEGATIVE /LPF Urine Other FEW SPERM H /HPF Urine Culture Indicated NO White Blood Count 6.3 4.3-11.0 10^3/uL Red Blood Count 4.46 4.30-5.52 10^6/uL Hemoglobin 14.1 13.3-17.7 g/dL Hematocrit 41 40-54 % Mean Corpuscular Volume 91 80-99 fL Mean Corpuscular Hemoglobin 32 25-34 pg Mean Corpuscular Hemoglobin Concent 35 32-36 g/dL Red Cell Distribution Width 13.2 10.0-14.5 % Platelet Count 183 130-400 10^3/uL Mean Platelet Volume 9.4 9.0-12.2 fL Immature Granulocyte % (Auto) 0 % Neutrophils (%) (Auto) 46 42-75 % Lymphocytes (%) (Auto) 42 12-44 % Monocytes (%) (Auto) 9 0-12 % Eosinophils (%) (Auto) 3 0-10 % Basophils (%) (Auto) 1 0-10 % Neutrophils # (Auto) 2.9 1.8-7.8 10^3/uL Lymphocytes # (Auto) 2.7 1.0-4.0 10^3/uL Monocytes # (Auto) 0.5 0.0-1.0 10^3/uL Eosinophils # (Auto) 0.2 0.0-0.3 10^3/uL Basophils # (Auto) 0.1 0.0-0.1 10^3/uL Immature Granulocyte # (Auto) 0.0 0.0-0.1 10^3/uL Sodium Level 140 135-145 MMOL/L Potassium Level 3.7 3.6-5.0 MMOL/L Chloride Level 104 98-107 MMOL/L Carbon Dioxide Level 25 21-32 MMOL/L Anion Gap 11 5-14 MMOL/L Blood Urea Nitrogen 24 H 7-18 MG/DL Creatinine 0.73 0.60-1.30 MG/DL Estimat Glomerular Filtration Rate 129 BUN/Creatinine Ratio 33 Glucose Level 107 H 70-105 MG/DL Calcium Level 9.4 8.5-10.1 MG/DL Corrected Calcium 8.5-10.1 MG/DL Total Bilirubin 0.8 0.1-1.0 MG/DL Aspartate Amino Transf (AST/SGOT) 24 5-34 U/L Alanine Aminotransferase (ALT/SGPT) 38 0-55 U/L Alkaline Phosphatase 45 40-136 U/L Total Protein 7.1 6.4-8.2 GM/DL Albumin 4.6 H 3.2-4.5 GM/DL My Orders Orders - STEWART TAY Bladder Scan (08/08/22 21:34) Ua Culture If Indicated (08/08/22 21:34) Comprehensive Metabolic Panel (08/08/22 21:51) Catheter(Urinary) Insert & Ass 03,15 (08/08/22 21:51) Lidocaine 2% (Urojet) (Xylocaine Urojet) (08/08/22 22:00) Us Scrotum (Testicle) 05523 (08/08/22 21:51) Cbc With Automated Diff (08/08/22 21:59) Ceftriaxone Inj (Rocephin Inj) (08/08/22 23:00) Lidocaine 1% Inj 20 Ml (Xylocaine 1% Inj (08/08/22 23:00) Ibuprofen Tablet (Motrin Tablet) (08/08/22 23:00) Vital Signs/I&O Capillary Refill : Less Than 3 Seconds Blood Pressure Mean: 113 Departure Communication (PCP) Reviewed previous ER visits, H&P, lab testing. History of urinary retention. States he has not urinated since 1 AM. Bladder scan was performed noted over 1000 ml of urine. Differential diagnoses urinary tension, enlarged prostate, underactive bladder. Patient has followed up with urology Dr. Galdamez the past. He states he was upset with his care and has not followed up with urology since. Due to the large amount of urine in the bladder Tony catheter was placed. Removed over 1000 ml. Patient with acute onset of right testicle or pain. This occurred around 9 AM. States he suffered a testicle or torsion 1 month ago was seen at [place]. Was not treated operative. Ultrasound was ordered. Differential diagnoses testicle torsion, epididymitis. He did have tenderness to the epididymis. No evidence of mass. No groin lymphadenopathy. Not concern for sexual transmitted affection. Urinalysis was negative for hematuria or infection. CBC, CMP was ordered which showed normal white blood count and kidney function. Ultrasound positive for epididymitis. No evidence of testicle or torsion or mass. Patient received 1 dose of Rocephin and will discharge with Levaquin to cover enteric organisms and STDs. Recommend urology follow-up within the next week for reevaluation. Discussed Tony catheter care. Patient was given ibuprofen with improvement of pain. He has no abdominal pain, flank pain, chills, body aches, fever, chest pain or shortness of breath. Patient does not appear toxic. Recommend recheck with your primary care physician in the next 2 to 3 days. Continue with anti-inflammatories. Recommend supportive underwear. Return precaution were discussed. Patient has no perineal tenderness Impression Primary Impression: Epididymitis Disposition: 01 HOME, SELF-CARE Condition: Stable Departure-Patient Inst. Decision time for Depature: 22:52 Referrals: [facility],LOCAL PHYSICIAN (PCP) Primary Care Physician Patient Instructions: Epididymitis Add. Discharge Instructions: Antibiotics as prescribed. Follow-up with urology for further evaluation for urinary retention. number follow-up [phone] All discharge instructions reviewed with patient and/or family. Voiced understanding. Scripts Levofloxacin (Levofloxacin) 500 Mg Tablet 500 MG PO DAILY for 10 Days, #10 TAB Prov: STEWART TAY 08/08/22 STEWART TAY Aug 08, 2022 21:56
[2022-08-08] MEDS ORDERED: LIDOCAINE UROJET 2% GEL 10 ML PKG TOP ONE (22:00)
[2022-08-08 22:04] LABS: BILIRUBIN,URINE NEGATIVE (NEGATIVE); CLARITY,URINE CLEAR; COLOR,URINE YELLOW; GLUCOSE, URINE (UA) NEGATIVE (NEGATIVE); KETONES,URINE NEGATIVE (NEGATIVE); LEUKOCYTE ESTERASE ,URINE NEGATIVE (NEGATIVE); NITRITE,URINE NEGATIVE (NEGATIVE); PH,URINE 6.5 (5-9); PROTEIN,URINE NEGATIVE (NEGATIVE)
[2022-08-08 22:11] LABS: BASOPHILS # (AUTO) 0.1 10^3/uL (0.0-0.1); BASOPHILS % (AUTO) 1 % (0-10); EOSINOPHILS # (AUTO) 0.2 10^3/uL (0.0-0.3); EOSINOPHILS % (AUTO) 3 % (0-10); HEMATOCRIT 41 % (40-54); HEMOGLOBIN 14.1 g/dL (13.3-17.7); LYMPHOCYTES # (AUTO) 2.7 10^3/uL (1.0-4.0); LYMPHOCYTES % (AUTO) 42 % (12-44); MEAN CORPUSCULAR HEMOGLOBIN 32 pg (25-34); MEAN CORPUSCULAR HGB CONC 35 g/dL (32-36); MEAN CORPUSCULAR VOLUME 91 fL (80-99); MEAN PLATELET VOLUME 9.4 fL (9.0-12.2); MONOCYTES # (AUTO) 0.5 10^3/uL (0.0-1.0); MONOCYTES % (AUTO) 9 % (0-12); NEUTROPHILS # (AUTO) 2.9 10^3/uL (1.8-7.8); NEUTROPHILS % (AUTO) 46 % (42-75); PLATELET COUNT 183 10^3/uL (130-400); WHITE BLOOD COUNT 6.3 10^3/uL (4.3-11.0)
[2022-08-08 22:17] LABS: AMORPHOUS SEDIMENT,UR FEW AMOR URATES /LPF; BACTERIA,URINE NEGATIVE /HPF; RBC,URINE RARE /HPF; URINE OTHER FEW SPERM /HPF; WBC,URINE RARE /HPF
[2022-08-08 22:18] LABS: ALBUMIN 4.6 GM/DL (3.2-4.5)
[2022-08-08 22:19] LABS: CHLORIDE 104 MMOL/L (98-107); POTASSIUM 3.7 MMOL/L (3.6-5.0); SODIUM 140 MMOL/L (135-145)
[2022-08-08 22:20] LABS: CALCIUM 9.4 MG/DL (8.5-10.1)
[2022-08-08 22:21] LABS: GLUCOSE 107 MG/DL (70-105); TOTAL PROTEIN 7.1 GM/DL (6.4-8.2)
[2022-08-08 22:22] LABS: CARBON DIOXIDE 25 MMOL/L (21-32)
[2022-08-08 22:23] LABS: BILIRUBIN,TOTAL 0.8 MG/DL (0.1-1.0)
[2022-08-08 22:24] LABS: ALKALINE PHOSPHATASE 45 U/L (40-136)
[2022-08-08 22:25] LABS: CREATININE SERUM 0.73 MG/DL (0.60-1.30); GFR ESTIMATED 129
[2022-08-08 22:26] LABS: BUN/CREATININE RATIO 33
[2022-08-08 22:28] LABS: ALANINE AMINOTRANSFERASE 38 U/L (0-55)
[2022-08-08] MEDS ORDERED: LEVO-55 PO (22:54)
[2022-08-08] MEDS ORDERED: IBUPROFEN 600 MG (MOTRIN) TAB PO ONE (23:00)
[2022-08-08] MEDS ORDERED: LIDOCAINE 1% INJ 20 ML VIAL INJ ONE (23:00)
[2022-08-08] MEDS ORDERED: cefTRIAXone 500 MG/5 ML ML IM ONE (23:00)
[2022-08-08 23:10] VITALS: BP 123/97
--- NOTE | 2022-08-09 05:58 | Diagnostic Imaging Report ---
PROCEDURE: US Scrotum. TECHNIQUE: Multiple real-time grayscale images were obtained over the scrotum in various projections bilaterally. INDICATION: Right testicular pain. FINDINGS: Testes are symmetric and homogeneous with internal blood flow. There is no evidence of testicular mass. There is no hydrocele or varicocele identified. There is enlargement of the right epididymal head reaching 2.3 cm with increased blood flow. No hernia is documented. IMPRESSION: Findings are consistent with right epididymitis. No testicular mass or torsion is seen. Dictated by: Dictated on workstation # [id number]
== END 2022-08-08 23:11 | disposition home or self-care (01) ==
LOC: EDUNIT# 21:31 → ER 21:32
DX: N45.1 Epididymitis (principal); Z28.310 Unvaccinated for COVID-19
CPT/HCPCS: 36415; 51702; 76870; 80053; 81000; 85025

== ENCOUNTER 2022-08-14 21:57 | Emergency (ER) | payer BC ==
[~2022-08-14 21:57] MED LIST changes: +LEVO-55 PO
[2022-08-14 22:02] VITALS: BP 157/100
[2022-08-14 22:31] LABS: BILIRUBIN,URINE NEGATIVE (NEGATIVE); CLARITY,URINE CLEAR; COLOR,URINE YELLOW; GLUCOSE, URINE (UA) NEGATIVE (NEGATIVE); KETONES,URINE NEGATIVE (NEGATIVE); LEUKOCYTE ESTERASE ,URINE NEGATIVE (NEGATIVE); NITRITE,URINE NEGATIVE (NEGATIVE); PROTEIN,URINE NEGATIVE (NEGATIVE)
--- NOTE | 2022-08-14 22:37 | ED GU-Male ---
General Chief Complaint: - Reproductive Stated Complaint: UNABLE TO URINATE Nursing Triage Note: PT AMB TO RM 6 WITH C/O UNABLE TO URINATE SINCE 1200 TODAY. PT STATES HE IS NOW HAVING PAIN Source: patient Exam Limitations: no limitations History of Present Illness Date Seen by Provider: Aug 14, 2022 Time Seen by Provider: 22:25 Initial Comments Patient is a 27-year-old male who presents to the emergency department with a chief complaint of inability to urinate. Symptom onset over the last 24 hours. Multiple similar visits to the emergency department for the same. He was last seen 1 week ago with urinary retention and a Sanford catheter was placed. He told the nurse that the catheter was "itchy" so he took out the following day. Has not followed up with urology. Patient states that he has had luck with inte rmittent catheterization. When he was involuntarily placed for psychiatric reasons and also water me the nurses would periodically straight cath him. He has not followed up with urologist to obtain self caths. Patient states that he noticed a little blood in the catheter before he pulled it. He states he did deflate the bulb. He denies fever, nausea, vomiting. Not on any medications for his urinary retention. He has used Flomax in the past but states he does not think that it works. Timing/Duration: this afternoon Severity/Quality: moderate Location: suprapubic Radiation: none Activities at Onset: none Prior Genitourinary Problems: similar symptoms Associated Symptoms: dysuria Allergies and Home Medications Allergies Coded Allergies: No Known Drug Allergies (Unverified , 06/07/21) Patient Home Medication List Home Medication List Reviewed: Yes Levofloxacin (Levofloxacin) 500 Mg Tablet, 500 MG PO DAILY Prescribed by: BONNY PINEDO on 08/08/22 4439 Phenazopyridine HCl (Pyridium) 200 Mg Tablet, 1 TAB PO TID Prescribed by: JAROCHO SHEEHAN on 06/13/21 0345 Tamsulosin HCl (Flomax) 0.4 Mg Cap, 0.4 MG PO HS Prescribed by: JAYLEN MCDONOUGH on 06/07/21 0845 Tamsulosin HCl (Flomax) 0.4 Mg Cap, 0.4 MG PO HS Prescribed by: MARCUS BARKER on 08/14/22 2243 Review of Systems Review of Systems Constitutional: see HPI Respiratory: no symptoms reported Cardiovascular: no symptoms reported Gastrointestinal: abdominal pain Genitourinary: burning, other (inability to void) Musculoskeletal: no symptoms reported Skin: no symptoms reported All Other Systemes Reviewed Negative Unless Noted: Yes Past Ufgkmnf-Lhhitk-Bwucqn Hx Patient Social History Tobacco Use?: No Substance use?: No Alcohol Use?: Yes Alcohol Frequency: Once in a while Pt feels they are or have been: No Immunizations Up To Date First/Initial COVID19 Vaccinat: NA Second COVID19 Vaccination Zackery: NA Third COVID19 Vaccination Date: NA Past Medical History Surgery/Hospitalization HX: ADHD, SCHIZOPHRENIA, AUTISM, ANXIETY, INPATIENT PSYCH PLACEMENT, WRIST, TESTICULAR SX. Surgeries: Yes (WRIST SURGERY; TESTICULAR SURGERY) Orthopedic, Testicular Respiratory: No Cardiac: No Neurological: No Genitourinary: Yes (TESTICULAR SURGERY-DOES NOT KNOW DETAILS) Gastrointestinal: No Musculoskeletal: Yes (WRIST FRACTURE/REPAIR) Fractures Endocrine: No HEENT: No Cancer: No Psychosocial: Yes (PARANOIA; MULTIPLE PSYCH ADMITS) ADD/ADHD, Sleep Difficulties, Anxiety, Schizophrenia Integumentary: No Blood Disorders: No Physical Exam Vital Signs Vital Signs - First Documented 08/14/22 22:02 Pulse 85 Resp 18 B/P (MAP) 157/100 (119) Pulse Ox 100 O2 Delivery Room Air Capillary Refill : Less Than 3 Seconds Height, Weight, BMI Height: '" Weight: lbs. oz. kg; 22.00 BMI Method: General Appearance: WD/WN, no apparent distress HEENT: PERRL/EOMI Cardiovascular: regular rate, rhythm Respiratory: lungs clear, normal breath sounds, no respiratory distress Gastrointestinal: soft Genital/Rectal: other (clear yello urine in sanford bag) Extremities: normal range of motion, normal inspection Neurologic/Psychiatric: alert, oriented x 3, other (flat affect) Skin: normal color, warm/dry Progress/Results/Core Measures Suspected Sepsis SIRS Temperature: Pulse: 85 Respiratory Rate: 18 Blood Pressure 157 /100 Mean: 119 Results/Orders Lab Results Laboratory Tests Test 08/14/22 22:22 Range/Units Urine Color YELLOW Urine Clarity CLEAR Urine pH 6.0 5-9 Urine Specific [place] 1.010 L 1.016-1.022 Urine Protein NEGATIVE NEGATIVE Urine Glucose (UA) NEGATIVE NEGATIVE Urine Ketones NEGATIVE NEGATIVE Urine Nitrite NEGATIVE NEGATIVE Urine Bilirubin NEGATIVE NEGATIVE Urine Urobilinogen 0.2 < = 1.0 MG/DL Urine Leukocyte Esterase NEGATIVE NEGATIVE Urine RBC (Auto) NEGATIVE NEGATIVE Urine RBC NONE /HPF Urine WBC NONE /HPF Urine Squamous Epithelial Cells NONE /HPF Urine Crystals PRESENT H /LPF Urine Amorphous Sediment RARE LON URATES H /LPF Urine Bacteria NEGATIVE /HPF Urine Casts NONE /LPF Urine Mucus NEGATIVE /LPF Urine Culture Indicated NO My Orders Orders - MARCUS BARKER MD Bladder Scan (08/14/22 22:12) Ua Culture If Indicated (08/14/22 22:25) Catheter(Urinary) Insert & Ass 03,15 (08/14/22 22:25) Vital Signs/I&O 08/14/22 22:02 Pulse 85 Resp 18 B/P (MAP) 157/100 (119) Pulse Ox 100 O2 Delivery Room Air Capillary Refill : Less Than 3 Seconds Blood Pressure Mean: 119 Progress Note : Time: 22:36 Progress Note Patient seen and evaluated. Evaluation today includes physical exam, urinalysis. Pertinent physical exam findings well-developed well-nourished 27-year-old male with stable vital signs, no acute distress. Very flat affect. Abdomen is soft and benign. Patient is examined after placement of Sanford catheter after bladder scan revealed 655 mL of retained urine. Differential diagnosis based on history and physical exam medication side effect/urinary retention, urinary tract infection Labs independently reviewed and evaluated by me. Urinalysis shows no evidence of blood or infection. Patient will be discharged home with Sanford catheter again in place. Strongly recommended to follow-up with urologist. He was given contact information for 3 separate urology clinics in [place]. He was given a prescription for Flomax. Discharged with a leg bag and the standard catheter bag. Departure Impression Primary Impression: Urinary retention Disposition: 01 HOME, SELF-CARE Condition: Stable Departure-Patient Inst. Decision time for Depature: 22:41 Referrals: NO,LOCAL PHYSICIAN (PCP/Family) Primary Care Physician Add. Discharge Instructions: [facility] : [phone] [facility] : [phone] [facility] : [phone] Call one of the clinics above tomorrow for an appointment so that you can get placed on medication that will help with your urine retention or for prescriptions for self cath kits. If you develop a fever, abdominal pain or any other concerning, emergent conditions please return to the emergency department for reevaluation. Scripts Tamsulosin HCl (Flomax) 0.4 Mg Cap 0.4 MG PO HS, #30 CAP Prov: MARCUS BARKER MD 08/14/22 MARCUS BARKER MD Aug 14, 2022 22:37
[2022-08-14] MEDS ORDERED: TMSL.4C PO (22:43)
[2022-08-14 22:56] LABS: AMORPHOUS SEDIMENT,UR RARE AMOR URATES /LPF; BACTERIA,URINE NEGATIVE /HPF
== END 2022-08-14 23:31 | disposition home or self-care (01) ==
LOC: EDUNIT# 21:57 → ER 21:58
DX: R33.9 Retention of urine, unspecified (principal); Z28.310 Unvaccinated for COVID-19
CPT/HCPCS: 51702; 81000